=== PATIENT | female | born 1940 | race Caucasian/White ===

== ENCOUNTER 2016-04-11 20:19 | Emergency (ER) | payer MEDICARE, OTHER ==
[~2016-04-11] VITALS: Ht 165.1 cm; Wt 71.4 kg
[~2016-04-11 20:19] MED LIST: ALPR.25 PO; CELE200C PO; CLAR5TAB PO; CYMB60CA PO; ESTR0.5T PO; FELO2.5T PO; FLUT50SP EACH NARE; IBUP800T23 PO; ISOS30TA3 PO; LEVO.2 PO; LIDO1PAD52 TOPICAL; METO25TA6 PO; MIRA25TA PO; MULT1TAB84 PO; PROT40TA PO; SONA5CAP7 PO; TEGR200T PO; TRAM100T19 PO; ZOCO40TA PO
[2016-04-11 20:21] VITALS: BP 187/89; PULSE 77; RESP 15; TEMP 97.8; O2SAT 95
[2016-04-12] MEDS ORDERED: LEVO150T7 PO (10:37)
[2016-08-14] MEDS ORDERED: ISOS30TA15 PO (11:20)
[2016-08-14] MEDS ORDERED: ESTR1TAB PO (11:20)
== END 2016-04-11 21:04 | disposition left against medical advice (07) ==
LOC: NED 20:19
DX: T81.89XA Other complications of procedures, not elsewhere classified, initial encounter (principal)
CPT/HCPCS: 99281

== ENCOUNTER 2016-04-12 09:50 | Inpatient (IN) | payer MEDICARE, OTHER ==
[~2016-04-12] VITALS: Ht 165.1 cm; Wt 72.0 kg
[2016-04-12 09:55] VITALS: BP 138/92; PULSE 75; RESP 20; TEMP 98; O2SAT 95
[2016-04-12] MEDS ORDERED: LEVO150T7 PO (10:37)
--- NOTE | 2016-04-12 10:43 | PD ---
HPI Chief Complaint: Pain: Acute or Chronic Time Seen by Provider: 10:29 Travel History International Travel<30 days: No Contact w/Intl Traveler<30days: No Traveled to known affect area: No History of Present Illness HPI The patient is a 76-year-old female who presents emergency department for a wound amount of the right foot. The patient has a history of peripheral neuropathy, cause unknown, for over 20 years. The patient has a history of osteomyelitis to the right foot with previous amputation of the first and second digit. The patient is followed by her territory manager and medicaid eligibility specialist, Dr. Mckeon. The patient states she developed a wound on the bottom the right foot on Friday that has been draining. It is mildly painful, she does have some swelling of the right foot, and erythema over the dorsal aspect of the right foot. She was referred to the emergency department for further evaluation and testing to rule out osteomyelitis. The patient denies any history of diabetes, alcohol use, or heavy metal toxicity. The patient has been seen for her neuropathy, has had an appropriate workup per her report, and was diagnosed with idiopathic peripheral neuropathy. The patient's primary physician is Dr. Rosalia Beavers. 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 Dvce: Yes Musculoskeletal: Yes Neurologic: Yes Psychiatric: Yes Reproductive: No Respiratory: No Radiation Therapy: No Thyroid Disease: Yes (hx of cancer) Past Surgical History Abdominal Surgery: Yes (appendectomy) Appendectomy: Yes Cardiac Surgery: Yes (PACER) Genitourinary Surgery: Yes (bladder a and p repair x2) Gynecologic Surgery: Yes (tubaligation hysterectomy with a and p repair) Oral Surgery: Yes (rhinoplasty) Pacemaker: Yes Thoracic Surgery: Yes (thyroidectomy) Other Surgery: Yes (left lumpectomy) Social History Alcohol Use: No Tobacco Use: No Substance Use: No Allergies-Medications (Allergen,Severity, Reaction): Coded Allergies: Aspirin (Verified Allergy, Severe, gi upset, 04/12/16) Codeine (Verified Allergy, Severe, n/v, 04/12/16) Lortab (Verified Allergy, Severe, n/v, 04/12/16) Pentazocine (Verified Allergy, Severe, 04/12/16) unknown reaction Doxycycline (Verified Allergy, Unknown, 04/12/16) Levaquin (Verified Allergy, Unknown, 04/12/16) *MDRO Multi-Drug Resistant Organism (Verified Adverse Reaction, Unknown, ) MRSA (toe wound) - 10/10/15 Uncoded Allergies: toviaz (Allergy, Severe, angina pain, 07/20/10) NONE (Allergy, Unknown, 11/16/02) TALWIN (Allergy, Unknown, 07/20/10) hallucinates Reported Meds & Prescriptions Reported Meds & Active Scripts Active Reported Levothyroxine (Levothyroxine Sodium) 150 Mcg Tab 150 Mcg PO DAILY Estradiol 0.5 Mg Tab 0.5 Mg PO DAILY Sonata (Zaleplon) 5 Mg Cap 5 Mg PO HS PRN Tramadol ER 24 HR (Tramadol HCl) 100 Mg Vamsi 50 Mg PO DAILY Fluticasone Nasal [place] 50 Mcg/Act Naspr 50 Mcg EACH NARE BID 50 mcg/spray Myrbetriq (Mirabegron) 25 Mg Tab 25 Mg PO DAILY Felodipine ER (Felodipine) 2.5 Mg Vamsi 2.5 Mg PO HS Multivitamin Adults (Multiple Vitamins W/ Minerals) 1 Tab 1 Tab PO DAILY Lidocaine Patch 12 HR (Lidocaine) 5 % Patch 1 Patch TOPICAL DAILY PRN Remove patch after 12 hours Xanax (Alprazolam) 0.25 Mg Tab 0.25 Mg PO DAILY PRN Celebrex (Celecoxib) 200 Mg Cap 200 Mg PO DAILY PRN Cymbalta DR (Duloxetine HCl) 60 Mg Capdr 60 Mg PO HS Zocor (Simvastatin) 40 Mg Tab 40 Mg PO DAILY Tegretol (Carbamazepine) 200 Mg Tab 200 Mg PO BID Protonix (Pantoprazole Sodium) 40 Mg Tab 40 Mg PO DAILY Metoprolol Succinate ER 24 HR (Metoprolol Succinate) 25 Mg Tab 25 Mg PO DAILY Isosorbide Mononitrate ER (Isosorbide Mononitrate) 30 Mg Vamsi 30 Mg PO DAILY Clarinex (Desloratadine) 5 Mg Tab 5 Mg PO DAILY Review of Systems Except as stated in HPI: all other systems reviewed are Neg General / Constitutional: No: Fever Cardiovascular: No: Chest Pain or Discomfort Respiratory: No: Shortness of Breath Gastrointestinal: No: Nausea, Vomiting, Abdominal Pain Musculoskeletal: Positive: Pain Skin: Positive Other (as noted in the history of present illness) Neurologic: Positive: Paresthesia, Sensory Disturbance Physical Exam Narrative GENERAL: Awake, alert, nontoxic-appearing 76-year-old female who appears her stated age and is in no acute respiratory distress. SKIN: Warm and dry. HEAD: Atraumatic. Normocephalic. EYES: No injection or drainage. ENT: No nasal bleeding or discharge. Mucous membranes pink and moist. NECK: Trachea midline. No JVD. CARDIOVASCULAR: Regular rate and rhythm. No murmur appreciated. Pacemaker in place right chest wall. RESPIRATORY: No accessory muscle use. Clear to auscultation. Breath sounds equal bilaterally. GASTROINTESTINAL: Abdomen soft, non-tender, nondistended. Hepatic and splenic margins not palpable. MUSCULOSKELETAL: Inspection the right foot reveals previous amputation of the first and second digit. The patient does have an ulceration on the plantar surface of the right foot which is approximate 1.5 cm in diameter with drainage of serosanguineous drainage. Mild edema and erythema noted. Positive dorsalis pedal pulse. NEUROLOGICAL: Awake and alert. No obvious cranial nerve deficits. Motor grossly within normal limits. Normal speech. PSYCHIATRIC: Appropriate mood and affect; insight and judgment normal. Data Data Last Documented VS Vital Signs Date Time Temp Pulse Resp B/P Pulse Ox O2 Delivery O2 Flow Rate FiO2 04/12/16 09:55 98.0 75 20 138/92 95 Room Air Orders Complete Blood Count With Diff (04/12/16 10:34) Comprehensive Metabolic Panel (04/12/16 10:34) [place]gren Sedimentation Rate (04/12/16 10:34) C-Reactive Protein (Crp) (04/12/16 10:34) Lactic Acid (04/12/16 10:34) Blood Culture (04/12/16 10:34) Foot, Limited (2vws) (04/12/16 ) Add Patient To Providers List (04/12/16 ) ^ Dressings (04/12/16 10:45) Piperacil-Tazo 4.5 Gm Premix (Zosyn 4.5 (04/12/16 11:00) Vancomycin Inj (Vancomycin Inj) (04/12/16 11:00) Admit Order (Ed Use Only) (04/12/16 11:00) Wbc Spect Ceretec (04/12/16 ) Labs Laboratory Tests Test 04/12/16 10:42 White Blood Count 7.9 TH/MM3 Red Blood Count 4.04 MIL/MM3 Hemoglobin 14.0 GM/DL Hematocrit 39.8 % Mean Corpuscular Volume 98.3 FL Mean Corpuscular Hemoglobin 34.6 PG Mean Corpuscular Hemoglobin 35.2 % Concent Red Cell Distribution Width 13.6 % Platelet Count 173 TH/MM3 Mean Platelet Volume 8.5 FL Neutrophils (%) (Auto) 84.3 % Lymphocytes (%) (Auto) 9.1 % Monocytes (%) (Auto) 5.9 % Eosinophils (%) (Auto) 0.4 % Basophils (%) (Auto) 0.3 % Neutrophils # (Auto) 6.7 TH/MM3 Lymphocytes # (Auto) 0.7 TH/MM3 Monocytes # (Auto) 0.5 TH/MM3 Eosinophils # (Auto) 0.0 TH/MM3 Basophils # (Auto) 0.0 TH/MM3 CBC Comment DIFF FINAL Differential Comment Erythrocyte Sedimentation Rate 18 mm/hr Sodium Level 138 MEQ/L Potassium Level 3.8 MEQ/L Chloride Level 104 MEQ/L Carbon Dioxide Level 29.8 MEQ/L Anion Gap 4 MEQ/L Blood Urea Nitrogen 16 MG/DL Creatinine 0.66 MG/DL Estimat Glomerular Filtration 88 ML/MIN Rate Random Glucose 88 MG/DL Lactic Acid Level 0.8 mmol/L Calcium Level 8.3 MG/DL Total Bilirubin 0.4 MG/DL Aspartate Amino Transf 18 U/L (AST/SGOT) Alanine Aminotransferase 20 U/L (ALT/SGPT) Alkaline Phosphatase 118 U/L C-Reactive Protein 8.53 MG/DL Total Protein 7.2 GM/DL Albumin 3.2 GM/DL MDM Medical Decision Making Medical Screen Exam Complete: Yes Emergency Medical Condition: Yes Medical Record Reviewed: Yes Interpretation(s) Foot x-ray reveals findings suspicious for osteomyelitis Laboratory Tests Test 04/12/16 10:42 White Blood Count 7.9 TH/MM3 Red Blood Count 4.04 MIL/MM3 Hemoglobin 14.0 GM/DL Hematocrit 39.8 % Mean Corpuscular Volume 98.3 FL Mean Corpuscular Hemoglobin 34.6 PG Mean Corpuscular Hemoglobin 35.2 % Concent Red Cell Distribution Width 13.6 % Platelet Count 173 TH/MM3 Mean Platelet Volume 8.5 FL Neutrophils (%) (Auto) 84.3 % Lymphocytes (%) (Auto) 9.1 % Monocytes (%) (Auto) 5.9 % Eosinophils (%) (Auto) 0.4 % Basophils (%) (Auto) 0.3 % Neutrophils # (Auto) 6.7 TH/MM3 Lymphocytes # (Auto) 0.7 TH/MM3 Monocytes # (Auto) 0.5 TH/MM3 Eosinophils # (Auto) 0.0 TH/MM3 Basophils # (Auto) 0.0 TH/MM3 CBC Comment DIFF FINAL Differential Comment Erythrocyte Sedimentation Rate 18 mm/hr Sodium Level 138 MEQ/L Potassium Level 3.8 MEQ/L Chloride Level 104 MEQ/L Carbon Dioxide Level 29.8 MEQ/L Anion Gap 4 MEQ/L Blood Urea Nitrogen 16 MG/DL Creatinine 0.66 MG/DL Estimat Glomerular Filtration 88 ML/MIN Rate Random Glucose 88 MG/DL Lactic Acid Level 0.8 mmol/L Calcium Level 8.3 MG/DL Total Bilirubin 0.4 MG/DL Aspartate Amino Transf 18 U/L (AST/SGOT) Alanine Aminotransferase 20 U/L (ALT/SGPT) Alkaline Phosphatase 118 U/L C-Reactive Protein 8.53 MG/DL Total Protein 7.2 GM/DL Albumin 3.2 GM/DL Differential Diagnosis Differential diagnosis osteomyelitis, peripheral neuropathy, foot ulcer, abscess , cellulitis. Narrative Course IV was established, labs are drawn and sent, and the patient was placed on cardiac telemetry monitoring and continuous pulse oximetry monitoring. Patient was evaluated bedside, discussed the patient with Dr. Mckeon in the emergency department, requested admission to the medical service with IV antibiotics and nuclear medicine WBC scan to evaluate for possible osteomyelitis , patient cannot have an MRI secondary to pacemaker. X-ray of the right foot is suspicious for osteomyelitis. Sedimentation rate is normal, however, CRP is elevated. The patient was administered Zosyn and vancomycin. The patient's primary physician is Dr. Francis Beavers, therefore, [facility] were paged for admission. Physician Communication Physician Communication The patient's primary physician is Dr. Francis Beavers, therefore, [facility] were paged for admission. I discussed the patient Dr. Abraham who agrees with admission. Diagnosis Primary Impression: Osteomyelitis of foot, right, acute Admitting Information Admitting Physician Requests: Admit Condition: Stable Desean Yeh MD Apr 12, 2016 10:43
--- NOTE | 2016-04-12 10:54 | PD.POD.CON ---
Patient Intake Chief Complaint Ulceration plantar aspect of the right foot Consult Requested by Dr. Hernandez emergency department Reason for Consult Evaluation and treatment of ulceration right foot Primary Care Physician Nydia Beavers History of Present Illness Patient is a 76-year-old patient well-known to myself. Patient had osteomyelitis of the hallux and underwent an amputation with good healing. She is idiopathic primary progressive neuropathy. She started having swelling of the right foot approximately 3-4 weeks ago. She underwent radiographs show fractures of the second and third metatarsal heads. She was scheduled for an outpatient [facility] labeled white blood cell scan but had difficulties arranging it. She called the office yesterday and since she has an open wound on the plantar aspect of the right foot. She was sent to the ED to be admitted and undergo the bone scan. If the bone is infected I will take her to the OR on Friday for excision. Coded Allergies: Aspirin (Verified Allergy, Severe, gi upset, 04/12/16) Codeine (Verified Allergy, Severe, n/v, 04/12/16) Lortab (Verified Allergy, Severe, n/v, 04/12/16) Pentazocine (Verified Allergy, Severe, 04/12/16) unknown reaction Doxycycline (Verified Allergy, Unknown, 04/12/16) Levaquin (Verified Allergy, Unknown, 04/12/16) *MDRO Multi-Drug Resistant Organism (Verified Adverse Reaction, Unknown, ) MRSA (toe wound) - 10/10/15 Uncoded Allergies: toviaz (Allergy, Severe, angina pain, 07/20/10) NONE (Allergy, Unknown, 11/16/02) GERONIMO (Allergy, Unknown, 07/20/10) hallucinates Preferred Language to Discuss: Burmese Barriers to Learning: None Teaching Method: Discussion Vital Signs Date Time Temp Pulse Resp B/P Pulse Ox O2 Delivery O2 Flow Rate FiO2 04/12/16 09:55 98.0 75 20 138/92 95 Room Air Pain scale used: 0-10 numeric scale Pain score: 0 Past, Family & Social History Past Medical History HEENT: REPORTS HX OF: Cataracts, DENIES HX OF: Glaucoma, Recurrent ear infections, Recurrent sinusitis, Other HEENT history Endocrine: REPORTS HX OF: Hypothyroidism, DENIES HX OF: Diabetes mellitus, Graves disease, Hyperthyroidism, Other endocrine history Respiratory: DENIES HX OF: Allergies/hay fever, Asthma, COPD, CPAP use, Sleep apnea, Other respiratory history Cardiovascular: REPORTS HX OF: Cardiac arrhythmias, Deep venous thrombosis, Heart valve disease, Hypertension, DENIES HX OF: Abdominal aortic aneurysm, Angina, Atrial fibrillation, Coronary artery disease, Heart failure, Hyperlipidemia, Myocardial infarction, Peripheral vascular dz, Other CV history Gastrointestinal: REPORTS HX OF: GERD, DENIES HX OF: Colitis, Irritable bowel syndrome, Liver disease, Pancreatitis, Peptic ulcer disease, Other GI history Genitourinary: DENIES HX OF: Chlamydia, Gonorrhea, Hemodialysis, Herpes genitalis, Human papillomavirus, Kidney disease, Kidney failure, Kidney stones, Past UTI, Peritoneal dialysis, Urinary incontinence, Other history Gynecologic: DENIES HX OF: Abnormal pap smear, Chronic pelvic pain, Endometriosis, PID, Polycystic ovarian synd, Recurrent vaginal infxn, Other plastering contractor history Musculoskeletal: REPORTS HX OF: Osteoarthritis, DENIES HX OF: Fibromyalgia, Fractures, Gout, Osteoporosis, Rheumatoid arthritis, Other musculoskeletal hx Cancer/Hematology: REPORTS HX OF: Thyroid cancer, DENIES HX OF: Anemia, Bladder Cancer, Blood cancer, Brain cancer, Breast cancer, Colorectal cancer, Endocrine cancer, Eye cancer, GI cancer, cancer, Kidney cancer, Leukemia, Liver cancer, Lung cancer, Lymphoma, Musculoskeletal cancer, Neurologic cancer, Oral cancer, Skin cancer, Stomach cancer, Other cancer/hematology Cancer - female: DENIES HX OF: Cervical cancer, Ovarian cancer, Uterine cancer Infectious disease: DENIES HX OF: AIDS, Chickenpox, Hepatitis, HIV, Measles, MRSA, Mumps, Polio, Positive PPD, Rheumatic fever, Rubella, Syphilis, Tuberculosis, Vanc-resistant enterococc, Other inf disease history Integumentary: REPORTS HX OF: Psoriasis, DENIES HX OF: Acne, Eczema, Other integumentary hx Neurologic: REPORTS HX OF: Peripheral neuropathy, Restless leg syndrome, Stroke , DENIES HX OF: ADHD, Autism, Dementia, Developmental delay, Headaches, Multiple sclerosis, Parkinson disease, Seizures, Transient ischemic attack, Other neurologic history Psychiatric: REPORTS HX OF: Depression, DENIES HX OF: Anorexia nervosa, Anxiety, Bipolar disorder, Bulimia, Schizophrenia, Other psychiatric history Genetic/metabolic: DENIES HX OF: Cystic fibrosis, Down syndrome, Other genetic history, Other metabolic history Events: DENIES HX OF: Anaphylaxis, Gunshot wound, Motor vehicle accident, Other events Disabilities: DENIES HX OF: Hearing deficit, Vision deficit, Hemiparesis, Paraplegia, Quadriplegia, Other disabilities Past Surgical History HEENT: REPORTS HX OF: Cataract extraction, Dental surgery, Other throat surgery , DENIES HX OF: Laryngectomy, Tonsillectomy, Other head surgery, Other eye surgery, Other ear surgery, Other nasal surgery Endocrine: REPORTS HX OF: Thyroid surgery, DENIES HX OF: Parathyroidectomy, Other endocrine surgery Respiratory: DENIES HX OF: Bronchoscopy, Lobectomy, Other chest surgery Cardiovascular: REPORTS HX OF: Angiogram, Pacemaker, DENIES HX OF: Angioplasty , CABG surgery, Carotid endarterectomy, Coronary stent, Heart transplant, Valve replacement, Other cardiac surgery Gastrointestinal: REPORTS HX OF: Appendectomy, DENIES HX OF: Cholecystectomy, Colectomy, subtotal, Colectomy, total, Gastric bypass, Hernia repair, Splenectomy, Other GI surgery Genitourinary: REPORTS HX OF: Bladder surgery, DENIES HX OF: Kidney stone extraction, Nephrectomy, Other surgery Gynecologic: REPORTS HX OF: Hysterectomy, Tubal ligation, DENIES HX OF: Cervical conization/LEEP, delivery, Oophorectomy, Other plastering contractor surgery Musculoskeletal: REPORTS HX OF: Joint replacement (right knee), Other musculoskeletal srg (amputation of the right hallux) Integumentary: DENIES HX OF: Skin cancer removal, Other integumentary surg Neurologic: DENIES HX OF: Craniotomy, Spinal surgery, Other neurologic surgery Breast: REPORTS HX OF: Breast biopsy, Lumpectomy, DENIES HX OF: Mastectomy, bilateral, Mastectomy, left, Mastectomy, right, Other breast surgery Family Medical History Patient History: Atrial fibrillation G8 MOTHER, Onset:50's - 60 Cardiac arrest G8 MOTHER, Onset:60 years & older Cerebrovascular accident G8 MOTHER, Onset:60 years & older G8 SISTER, Onset:60 years & older G8 SISTER, Onset:50's - 60 ( at 60) Depression G8 MOTHER, Onset:40's - 50 19 DAUGHTER, Onset:Adolescence 19 DAUGHTER, Onset:30's - 40 G8 SISTER, Onset:50's - 60 G8 SISTER, Onset:Adolescence Hypertension G8 MOTHER, Onset:50's - 60 G8 SISTER, Onset:60 years & older G8 SISTER, Onset:40's - 50 Thyroid disease G8 MOTHER, Onset:50's - 60 G8 SISTER, Onset:50's - 60 Substance Use Substance use: Denies use Review of Systems Constitutional: COMPLAINS OF: Good general health Musculoskeletal: COMPLAINS OF: Deformaties Neurological: COMPLAINS OF: Numbness/tingling, Changes in sensation Exam-Podiatry Constitutional General appearance: comfortable Nutritional status: normal Orientation: alert and oriented x3 Dermatological Exam Skin Temp - Right: Within Normal Limits Skin Texture - Right: Within Normal Limits Skin Elasticity - Right: Within Normal Limits Skin Tugor - Right: Within Normal Limits Hair Growth - Right: Within Normal Limits Pigmentation - Right: Within Normal Limits Skin Temp - Left: Within Normal Limits Skin Texture - Left: Within Normal Limits Skin Elasticity - Left: Within Normal Limits Skin Tugor - Left: Within Normal Limits Hair Growth - Left: Within Normal Limits Pigmentation - Left: Within Normal Limits Ulcers: Location/Measurements Right foot is swollen with slight erythema. She has an ulceration under the second metatarsal head which measures approximate 4 mm x 3 mm. There is no purulent drainage seen. Vascular/Lymphatic Exam R Dorsails Pedis: Palpable L Dorsails Pedis: Palpable R Posterior Tibial: Palpable L Posterior Tibial: Palpable Neurologic Exam Present on right: Tingling, Paraesthesia Present on left: Tingling, Paraesthesia Sensation: Light touch: Absence Pinprick: Absence Proprioception: Absence Vibratory: Absence Monofilament exam: 1st metatarsal head: absent 5th metatarsal head: absent Musculoskeletal Exam Details Hallux amputation right foot. Swollen right forefoot with fractures and destruction of second and third metatarsal heads noted on her x-rays Muscle Strength Dorsiflexion (Right): Normal Plantarflexion (Right): Normal Inversion (Right): Normal Eversion (Right): Normal Digital (Right): Normal Dorsiflexion (Left): Normal Plantarflexion (Left): Normal Inversion (Left): Normal Eversion (Left): Normal Digital (Left): Normal Foot Range of Motion Dorsiflexion (Right): Normal Plantarflexion (Right): Normal Inversion (Right): Normal Eversion (Right): Normal Digital (Right): Normal Dorsiflexion (Left): Normal Plantarflexion (Left): Normal Inversion (Left): Normal Eversion (Left): Normal Digital (Left): Normal Extremities Edema: Right lower extremity: 2+, nonpitting, foot Wound Assessment Wound Information - Wound One Wound Location: Right great toe- plantar Wound Two Wound Location: Right great toe amp site Assessment/Plan Problem List: (1) Pressure ulcer of right foot, stage 3 Status: Acute (2) Peripheral neuropathy Status: Chronic (3) Osteomyelitis of toe of right foot Status: Acute (4) Fracture of metatarsal Status: Acute Additional Plans & Procedures PLAN: [facility]. If test is positive we'll take her to the OR on Friday for excision of infected bone. Protective dressing for now. We'll continue to follow. Problem Qualifiers (1) Peripheral neuropathy: Qualified Code: G60.9 - Idiopathic peripheral neuropathy (2) Fracture of metatarsal: Qualified Code: S92.321G - Closed displaced fracture of second metatarsal bone of right foot with delayed healing, subsequent encounter Francis Mckeon DPM Apr 12, 2016 10:54
[2016-04-12 10:59] LABS: AUTOMATED NEUTROPHIL # 6.7 TH/MM3 (1.8-7.7); BASOPHIL % 0.3 % (0.0-2.0); EOSINOPHIL % 0.4 % (0.0-4.0); HEMATOCRIT 39.8 % (35.0-46.0); HEMO FLAGS DIFF FINAL; LYMPH % 9.1 % (9.0-44.0); LYMPHOCYTE # 0.7 TH/MM3 (1.0-4.8); MEAN CELL VOLUME 98.3 FL (80.0-100.0); MEAN CORPUSCULAR HEMOGLOBIN 34.6 PG (27.0-34.0); MEAN CORPUSCULAR HGB CONC 35.2 % (32.0-36.0); MONO % 5.9 % (0.0-8.0); NEUT % 84.3 % (16.0-70.0); PLATELET COUNT 173 TH/MM3 (150-450); RED BLOOD COUNT 4.04 MIL/MM3 (4.00-5.30); RED CELL DISTRIBUTION WIDTH 13.6 % (11.6-17.2); WHITE BLOOD COUNT 7.9 TH/MM3 (4.0-11.0)
[2016-04-12] MEDS ORDERED: VANCOMYCIN INJ 1,000 MG in SODIUM CHLOR 0.9% 250 ML INJ 250 ML IV ONE (11:00)
[2016-04-12] MEDS ORDERED: PIPERACIL-TAZO 4.5 GM PREMIX 100 ML IV ONE (11:00)
[2016-04-12] MEDS ORDERED: ONDANSETRON HCL 4 MG/2 ML VIAL IVP PRN (11:15)
[2016-04-12] MEDS ORDERED: SODIUM CHLORIDE 0.9% FLUSH 5 ML FLUSH FLUSH PRN (11:15)
[2016-04-12] MEDS ORDERED: NALOXONE HCL 0.4 MG/ML AMP IV PRN (11:15)
[2016-04-12] MEDS ORDERED: LIDOCAINE HCL 5% PATCH T-DERMAL PRN (11:15)
[2016-04-12] MEDS ORDERED: CELECOXIB 200 MG CAP PO PRN (11:15)
[2016-04-12 11:27] LABS: ALT (GPT) 20 U/L (10-53); ANION GAP 4 MEQ/L (5-15); AST (GOT) 18 U/L (15-37); BICARBONATE 29.8 MEQ/L (21.0-32.0); BLOOD UREA NITROGEN 16 MG/DL (7-18); CHLORIDE 104 MEQ/L (98-107); GLOMERULAR FILTRATION RATE 88 ML/MIN (>89); POTASSIUM 3.8 MEQ/L (3.5-5.1); SODIUM (NA) 138 MEQ/L (136-145)
[2016-04-12 11:30] LABS: ALKALINE PHOSPHATASE 118 U/L (45-117); TOTAL BILIRUBIN ADULT 0.4 MG/DL (0.2-1.0)
--- NOTE | 2016-04-12 11:54 | RADRPT ---
EXAM DATE/TIME: 04/12/2016 11:06 [place] COMPARISON: No previous studies available for comparison. INDICATIONS : Plantar wound with inflammation and pain. MEDICAL HISTORY : Osteoarthritis. Great toe bone infection. SURGICAL HISTORY : Great toe amputation. ENCOUNTER: Initial ACUITY: 2 weeks PAIN SCORE: 4/10 LOCATION: 3rd metatarsal/plantar wound. FINDINGS: The patient is status-post amputation of the 1st phalanx. There is periosteal reaction involving the distal 2nd metatarsal and proximal phalanx of the 2nd toe. Periosteal reaction is seen about the 3r d metatarsal, what looks like a fracture. There is ulceration present throughout the site. There is no soft tissue evident. CONCLUSION: Findings suspicious for osteomyelitis. Bryn Vo MD FACR on April 12, 2016 at 11:18 Board Certified Radiologist. This report was verified electronically.
[2016-04-12 12:00] VITALS: BP 138/68; PULSE 71; RESP 20; O2SAT 97
[2016-04-12] MEDS ORDERED: ZOLPIDEM TARTRATE 5 MG TAB PO PRN (12:00)
[2016-04-12] MEDS: HEPARIN SODIUM - SQ 10,000 UNITS/ML VIAL SQ SCH (13:41)
[2016-04-12] MEDS: SODIUM CHLOR 0.45% 1000 ML INJ 1,000 ML IV SCH (15:14)
--- NOTE | 2016-04-12 16:33 | HHI.HP ---
HPI Service [facility] Primary Care Physician Nydia Beavers Admission Diagnosis pressure foot ulcer right foot rule out osteomyelitis, neuropathy Diagnoses: Chief Complaint: FOOT ULCER Travel History International Travel<30 Days: No Contact w/Intl Traveler <30 Da: No Traveled to Known Affected Are: No History of Present Illness Patient is a 76-year-old female with PMHx of idiopathic neuropathy receives immunoglobulin therapy from Dr. Cardona, diabetes, hypertension, hyperlipidemia, osteomyelitis of the hallux with amputation. She follows up regularly with Dr. Mckeon. Patient presented to the emergency room for evaluation of wound to the right foot. According to the patient, she has noted the wound has been draining, it is mildly painful, she does have decreased sensation. She's noted that the second and third toe are more swollen and she has erythema over the dorsal aspect of the right foot and up anterior leg, sometimes this is more when she is walking or legs are dangling. Symptoms have been ongoing for a couple of weeks. She denies any fever or chills. She contacted Dr. Mckeon and was scheduled to have a Ceretec scan but had difficulties arranging it. He will order x-rays that showed fractures of the second and third metatarsal heads. She called him yesterday and because of the open wound she was directed to the emergency room for admission to have bone scan. Dr. Mckeon has evaluated patient, if the bone is infected he plans to take her to the OR for excision. Patient has just come back from bone scan, she is resting comfortably. Pain is minimal. She is hemodynamically stable. X-ray of the foot was done showing suspicious for osteomyelitis. CRP is elevated. Patient is admitted for further evaluation and treatment. Review of Systems Constitutional: DENIES: Diaphoretic episodes, Fatigue, Fever, Weight gain, Weight loss, Chills, Dizziness, Change in appetite, Night Sweats Endocrine: DENIES: Abnorml menstrual pattern, Heat/cold intolerance, Polydipsia , Polyuria, Polyphagia Eyes: DENIES: Blurred vision, Diplopia, Eye inflammation, Eye pain, Vision loss , Photosensitivity, Double Vision Ears, nose, mouth, throat: DENIES: Tinnitus, Hearing loss, Vertigo, Nasal discharge, Oral lesions, Throat pain, Hoarseness, Ear Pain, Running Nose, Epistaxis, Sinus Pain, Toothache, Odynophagia Respiratory: DENIES: Apneas, Cough, Snoring, Wheezing, Hemoptysis, Sputum production, Shortness of breath Cardiovascular: DENIES: Chest pain, Palpitations, Syncope, Dyspnea on Exertion , PND, Lower Extremity Edema, Orthopnea, Claudication Gastrointestinal: DENIES: Abdominal pain, Black stools, Bloody stools, Constipation, Diarrhea, Nausea, Vomiting, Difficulty Swallowing, Anorexia Genitourinary: DENIES: Abnormal vaginal bleeding, Dysmenorrhea, Dyspareunia, Sexual dysfunction, Urinary frequency, Urinary incontinence, Urgency, Hematuria , Dysuria, Nocturia, Vaginal discharge Musculoskeletal: COMPLAINS OF: Joint pain, DENIES: Muscle aches, Stiffness, Joint Swelling, Back pain, Neck pain Integumentary: DENIES: Abnormal pigmentation, Pruritus, Rash, Nail changes, Breast masses, Breast skin changes, Nipple discharge Hematologic/lymphatic: DENIES: Bruising, Lymphadenopathy Immunologic/allergic: DENIES: Eczema, Urticaria Neurologic: DENIES: Abnormal gait, Headache, Localized weakness, Paresthesias, Seizures, Speech Problems, Tremor, Poor Balance Psychiatric: DENIES: Anxiety, Confusion, Mood changes, Depression, Hallucinations, Agitation, Suicidal Ideation, Homicidal Ideation, Delusions Other Swelling of second and third toe right foot, wound to the plantar aspect of right foot with scant drainage. Erythema to right foot and leg Past Family Social History Past Medical History Osteomyelitis of hallux, status post amputation Chronic inflammatory demyelinating polyneuropathy Prediabetes GERD Hiatal hernia Hypertension Thyroid cancer Hyperlipidemia Coronary artery disease, had cardiac catheter that showed mild disease, treated medically Bradycardia, require pacemaker CVA many years ago, no deficits Anxiety Arthritis Cataract DVT Past Surgical History Right total knee arthroplasty Breast augmentation Appendectomy Bladder repair Hysterectomy Tubal ligation Thyroidectomy Rhinoplasty Left lumpectomy benign tumor Pacemaker insertion for bradycardia Cardiac catheterization S/P Amputation of the right hallux at the [facility] 01/05 Reported Medications Reported Meds & Active Scripts Active Reported Levothyroxine (Levothyroxine Sodium) 150 Mcg Tab 150 Mcg PO DAILY Estradiol 0.5 Mg Tab 0.5 Mg PO DAILY Sonata (Zaleplon) 5 Mg Cap 5 Mg PO HS PRN Tramadol ER 24 HR (Tramadol HCl) 100 Mg Vamsi 50 Mg PO DAILY Fluticasone Nasal [place] 50 Mcg/Act Naspr 50 Mcg EACH NARE BID 50 mcg/spray Myrbetriq (Mirabegron) 25 Mg Tab 25 Mg PO DAILY Felodipine ER (Felodipine) 2.5 Mg Vamsi 2.5 Mg PO HS Multivitamin Adults (Multiple Vitamins W/ Minerals) 1 Tab 1 Tab PO DAILY Lidocaine Patch 12 HR (Lidocaine) 5 % Patch 1 Patch TOPICAL DAILY PRN Remove patch after 12 hours Xanax (Alprazolam) 0.25 Mg Tab 0.25 Mg PO DAILY PRN Celebrex (Celecoxib) 200 Mg Cap 200 Mg PO DAILY PRN Cymbalta DR (Duloxetine HCl) 60 Mg Capdr 60 Mg PO HS Zocor (Simvastatin) 40 Mg Tab 40 Mg PO DAILY Tegretol (Carbamazepine) 200 Mg Tab 200 Mg PO BID Protonix (Pantoprazole Sodium) 40 Mg Tab 40 Mg PO DAILY Metoprolol Succinate ER 24 HR (Metoprolol Succinate) 25 Mg Tab 25 Mg PO DAILY Isosorbide Mononitrate ER (Isosorbide Mononitrate) 30 Mg Vamsi 30 Mg PO DAILY Clarinex (Desloratadine) 5 Mg Tab 5 Mg PO DAILY Allergies: Coded Allergies: Aspirin (Verified Allergy, Severe, gi upset, 04/12/16) Codeine (Verified Allergy, Severe, n/v, 04/12/16) Lortab (Verified Allergy, Severe, n/v, 04/12/16) Pentazocine (Verified Allergy, Severe, 04/12/16) unknown reaction Doxycycline (Verified Allergy, Unknown, 04/12/16) Levaquin (Verified Allergy, Unknown, 04/12/16) *MDRO Multi-Drug Resistant Organism (Verified Adverse Reaction, Unknown, ) MRSA (toe wound) - 10/10/15 Uncoded Allergies: toviaz (Allergy, Severe, angina pain, 07/20/10) NONE (Allergy, Unknown, 11/16/02) TALWIN (Allergy, Unknown, 07/20/10) hallucinates Active Ordered Medications Inpatient Medications Acetaminophen (Tylenol) 650 mg Q4H PRN PO TEMP > 100.4; Start 04/12/16 at 11:15 Alprazolam (Xanax) 0.25 mg DAILY PRN PO ANXIETY; Start 04/12/16 at 11:15 Amlodipine Besylate (Norvasc) 2.5 mg HS PO ; Start 04/12/16 at 21:00 Carbamazepine (TEGretol) 200 mg BID PO ; Start 04/12/16 at 21:00 Celecoxib (CeleBREX) 200 mg DAILY PRN PO PAIN; Start 04/12/16 at 11:15 Duloxetine HCl (Cymbalta Dr) 60 mg HS PO ; Start 04/12/16 at 21:00 Estradiol (Estradiol) 0.5 mg DAILY PO ; Start 04/13/16 at 09:00 Fluticasone Propionate (Flonase Daryl Spr) 1 spray BID EACH NARE ; Start 04/12/16 at 21:00 Heparin Sodium (Porcine) (Heparin Inj) 5,000 units Q12H SQ Last administered on 04/12/16 13:41; Start 04/12/16 at 12:00 Isosorbide Mononitrate (Imdur) 30 mg DAILY PO ; Start 04/13/16 at 09:00 IV Flush (NS Flush) 2 ml BID FLUSH ; Start 04/12/16 at 21:00 Levothyroxine Sodium (Synthroid) 150 mcg DAILY@0600 PO ; Start 04/13/16 at 06:00 Lidocaine HCl (Lidoderm 5% Patch.12 Hr) 1 patch DAILY PRN T-DERMAL PAIN; Start 04/12/16 at 11:15 Loratadine (Claritin) 10 mg DAILY PO ; Start 04/13/16 at 09:00 Metoprolol Succinate (Toprol Xl) 25 mg DAILY PO ; Start 04/13/16 at 09:00 Multivitamins/ Minerals Therapeutic (Theragran M Tab) 1 tab DAILY PO ; Start 04/13/16 at 09:00 Naloxone HCl (Narcan Inj) 0.4 mg UNSCH PRN IV SEE LABEL COMMENTS; Start at 11:15 Ondansetron HCl (Zofran Inj) 4 mg Q6H PRN IVP NAUSEA OR VOMITING; Start at 11:15 Pantoprazole Sodium (Protonix) 40 mg DAILY PO ; Start 04/13/16 at 09:00 Patient Own Medication PT OWN MED: MYRBET... DAILY PO ; Start 04/13/16 at 09:00; Status Future Hold Piperacillin Sod/ Tazobactam Sod 100 ml @ 200 mls/hr ONCE ONCE IV Last administered on 04/12/16 11:11; Start 04/12/16 at 11:00; Stop 04/12/16 at 11:29; Status DC Pravastatin Sodium (Pravachol) 80 mg DAILY PO ; Start 04/13/16 at 09:00 Sodium Chloride (1/2 NS 1000 ml Inj) 1,000 ml @ 75 mls/hr [id number] IV Last administered on 04/12/16 15:14; Start 04/12/16 at 11:01 Tramadol HCl (Ultram) 50 mg DAILY PO ; Start 04/13/16 at 09:00 Vancomycin HCl 1000 mg/Sodium Chloride 250 ml @ 125 mls/hr ONCE ONCE IV Last administered on 04/12/16 12:03; Start 04/12/16 at 11:00; Stop 04/12/16 at 12:59; Status DC Zolpidem Tartrate (Ambien) 5 mg HS PRN PO INSOMNIA; Start 04/12/16 at 12:00 Family History Positive for history of thyroid disease, hypertension, depression, CVA, cardiac arrest, A. fib Social History Patient is a , lives alone. She has 2 grown daughters who are supportive and live nearby. No alcohol, no tobacco, no substance abuse. Occasionally uses a cane for ambulation. Physical Exam Vital Signs Vital Signs Date Time Temp Pulse Resp B/P Pulse Ox O2 Delivery O2 Flow Rate FiO2 04/12/16 12:00 71 20 138/68 97 Room Air 04/12/16 09:55 98.0 75 20 138/92 95 Room Air Physical Exam GENERAL: This is a well-nourished, well-developed patient, in no apparent distress. SKIN: No rashes, ecchymoses or lesions. Cool and dry. HEAD: Atraumatic. Normocephalic. No temporal or scalp tenderness. EYES: Pupils equal round and reactive. Extraocular motions intact. No scleral icterus. No injection or drainage. ENT: Nose without bleeding, purulent drainage or septal hematoma. Throat without erythema, tonsillar hypertrophy or exudate. Uvula midline. Airway patent. NECK: Trachea midline. No JVD or lymphadenopathy. Supple, nontender, no meningeal signs. CARDIOVASCULAR: Regular rate and rhythm without murmurs, gallops, or rubs. RESPIRATORY: Clear to auscultation. Breath sounds equal bilaterally. No wheezes , rales, or rhonchi. GASTROINTESTINAL: Abdomen soft, non-tender, nondistended. No hepato-splenomegaly , or palpable masses. No guarding. MUSCULOSKELETAL: Right foot is swollen with slight erythema. There is also erythema at the anterior right leg. She has an ulceration under the second metatarsal head which measures approximate 4 mm x 3 mm. There is no purulent drainage seen. Status post right hallux amputation, site appears well-healed. Second and third toe are swollen. No other joint abnormalities. NEUROLOGICAL: Awake and alert. Cranial nerves II through XII intact. Motor and sensory grossly within normal limits. Five out of 5 muscle strength in all muscle groups. Normal speech. Decrease sensation to both feet. Laboratory Laboratory Tests Test 04/12/16 10:42 White Blood Count 7.9 Red Blood Count 4.04 Hemoglobin 14.0 Hematocrit 39.8 Mean Corpuscular Volume 98.3 Mean Corpuscular Hemoglobin 34.6 Mean Corpuscular Hemoglobin 35.2 Concent Red Cell Distribution Width 13.6 Platelet Count 173 Mean Platelet Volume 8.5 Neutrophils (%) (Auto) 84.3 Lymphocytes (%) (Auto) 9.1 Monocytes (%) (Auto) 5.9 Eosinophils (%) (Auto) 0.4 Basophils (%) (Auto) 0.3 Neutrophils # (Auto) 6.7 Lymphocytes # (Auto) 0.7 Monocytes # (Auto) 0.5 Eosinophils # (Auto) 0.0 Basophils # (Auto) 0.0 CBC Comment DIFF FINAL Differential Comment Erythrocyte Sedimentation Rate 18 Sodium Level 138 Potassium Level 3.8 Chloride Level 104 Carbon Dioxide Level 29.8 Anion Gap 4 Blood Urea Nitrogen 16 Creatinine 0.66 Estimat Glomerular Filtration 88 Rate Random Glucose 88 Lactic Acid Level 0.8 Calcium Level 8.3 Total Bilirubin 0.4 Aspartate Amino Transf 18 (AST/SGOT) Alanine Aminotransferase 20 (ALT/SGPT) Alkaline Phosphatase 118 C-Reactive Protein 8.53 Total Protein 7.2 Albumin 3.2 Date/Time Procedure Status Source Growth 04/12/16 10:50 Aerobic Blood Culture Received Blood Peripheral Pending 04/12/16 10:50 Anaerobic Blood Culture Received Blood Peripheral Pending Result Diagram: 04/12/16 1042 04/12/16 1042 Imaging Last Impressions Foot X-Ray 04/12/16 0000 Signed Impressions: Service Date/Time: Tuesday, April 12, 2016 11:06 - CONCLUSION: Findings suspicious for osteomyelitis. Bryn Vo MD FACR Assessment and Plan Problem List: (1) Osteomyelitis of foot, right, acute (2) Hypertension (3) Hyperlipidemia (4) Hypothyroid (5) Diet-controlled diabetes mellitus (6) Peripheral neuropathy (7) CAD (coronary artery disease) Assessment and Plan Admit Dr. Abraham 76-year-old female with previous osteomyelitis of right hallux, status post amputation. Returns to emergency room with increased swelling and erythema right foot, has open wound to the plantar aspect of the right foot. Admitted for recurrent foot ulcer, possible osteomyelitis -Dr. Mckeon has evaluated patient, input appreciated. -Bone scan has been ordering completed. Per Dr. Mckeon, if the bone is infected he will take her to the OR and Friday for excision -We'll follow up on results of scan Pain management -Cultures have been obtained -Will be started on empiric antibiotic Neuropathy -continue Cymbalta and Tegretol Diet -controlled diabetes -Accu-Cheks before meals and at bedtime with low-dose insulin therapy Hypertension, stable -Resume home medications CAD stable Continue home medications Heparin for DVT prophylaxis Plan of care discussed with pt, RN, and attending. Further management of the patient will be dependent on the hospital course. This patient was seen by myself and Dr. Abraham. This H/P is written on his behalf. Physician Certification 2 Midnight Certification Type: Admission for Inpatient Services Order for Inpatient Services The services are ordered in accordance with Medicare regulations or non- Medicare payer requirements, as applicable. In the case of services not specified as inpatient-only, they are appropriately provided as inpatient services in accordance with the 2-midnight benchmark. Estimated LOS (days): 2 2 days is the estimated time the patient will need to remain in the hospital, assuming treatment plan goals are met and no additional complications. Post-Hospital Plan: Home Health Problem Qualifiers (1) Hypertension: Qualified Code: I10 - Essential hypertension (2) Hyperlipidemia: Qualified Code: E78.5 - Hyperlipidemia, unspecified hyperlipidemia type (3) Hypothyroid: Qualified Code: E03.9 - Hypothyroidism, unspecified type (4) Peripheral neuropathy: Qualified Code: G60.9 - Idiopathic peripheral neuropathy (5) CAD (coronary artery disease): Qualified Code: I25.10 - Coronary artery disease involving [place] coronary artery of [place] heart without angina pectoris Yaneli Solano Apr 12, 2016 16:33
[2016-04-12 16:35] VITALS: BP 153/72; PULSE 86; RESP 17; TEMP 98.2; O2SAT 98
[2016-04-12] MEDS ORDERED: Vancomycin Consult Pharmacy 1 EA OTHER SCH (17:00)
[2016-04-12] MEDS ORDERED: DEXTROSE 50% IN WATER 50 ML VIAL(D50) IV PUSH PRN (17:00)
[2016-04-12] MEDS ORDERED: GLUCAGON 1 MG/ML VIAL OTHER PRN (17:00)
[2016-04-12 20:45] VITALS: BP 165/81; PULSE 75; RESP 17; TEMP 97.6; O2SAT 96
[2016-04-12] MEDS: INSULIN ASPART SUPPLEMENTAL SCALE SQ SCH (21:00)
[2016-04-12] MEDS: FLUTICASONE PROPIONATE 50 MCG/ACT 16 GM NASAL SPRAY EACH NARE SCH (21:00)
[2016-04-12] MEDS: DULoxetine HCl DR 60 MG CAP PO SCH (21:51)
[2016-04-12] MEDS: carBAMazepine 200 MG TAB PO SCH (21:51)
[2016-04-12] MEDS: amLODIPine BESYLATE 5 MG TAB PO SCH (21:52)
[2016-04-12] MEDS: SODIUM CHLORIDE 0.9% FLUSH 5 ML FLUSH FLUSH SCH (21:52)
[2016-04-12] MEDS ORDERED: VANCOMYCIN 1,000 MG/NS 250 ML IV ONE ×2 (23:00)
[2016-04-13 00:45] VITALS: BP 150/80; PULSE 69; RESP 18; TEMP 98.1; O2SAT 97
[2016-04-13] MEDS: HEPARIN SODIUM - SQ 10,000 UNITS/ML VIAL SQ SCH ×3 (01:37→23:26)
[2016-04-13] MEDS: PIPERACIL-TAZO 3.375 GM PREMIX 50 ML IV SCH ×5 (01:37→22:46)
[2016-04-13] MEDS: ACETAMINOPHEN 325 MG TAB PO PRN ×2 (02:41→14:04)
[2016-04-13 05:15] VITALS: BP 140/76; PULSE 83; RESP 17; TEMP 98; O2SAT 94
[2016-04-13] MEDS: INSULIN ASPART SUPPLEMENTAL SCALE SQ SCH ×2 (06:48→11:00)
[2016-04-13 08:05] LABS: BICARBONATE 26.3 MEQ/L (21.0-32.0)
[2016-04-13 08:15] LABS: BASOPHIL % 0.3 % (0.0-2.0); EOSINOPHIL % 0.2 % (0.0-4.0); HEMATOCRIT 40.4 % (35.0-46.0); HEMO FLAGS DIFF FINAL; LYMPH % 18.9 % (9.0-44.0); MEAN CELL VOLUME 99.7 FL (80.0-100.0); MEAN CORPUSCULAR HEMOGLOBIN 34.7 PG (27.0-34.0); MEAN CORPUSCULAR HGB CONC 34.8 % (32.0-36.0); MONO % 6.2 % (0.0-8.0); NEUT % 74.4 % (16.0-70.0); PLATELET COUNT 158 TH/MM3 (150-450); RED BLOOD COUNT 4.05 MIL/MM3 (4.00-5.30); RED CELL DISTRIBUTION WIDTH 13.7 % (11.6-17.2); WHITE BLOOD COUNT 5.3 TH/MM3 (4.0-11.0)
[2016-04-13 08:48] LABS: POTASSIUM 3.3 MEQ/L (3.5-5.1)
[2016-04-13] MEDS ORDERED: NON-FORMULARY DRUG (Mirabegron (Myrbetriq) 25 MG) PO SCH (09:00)
[2016-04-13] MEDS ORDERED: PT OWN - MYRBETRIQ 25 MG PO SCH (09:00)
[2016-04-13] MEDS: FLUTICASONE PROPIONATE 50 MCG/ACT 16 GM NASAL SPRAY EACH NARE SCH ×2 (09:00→20:25)
[2016-04-13 09:59] VITALS: BP 134/74; PULSE 78; RESP 20; TEMP 97.7; O2SAT 94
[2016-04-13] MEDS: LORATADINE 10 MG TAB PO SCH (10:20)
[2016-04-13] MEDS: LEVOTHYROXINE SODIUM 150 MCG TAB PO SCH (10:20)
[2016-04-13] MEDS: PRAVASTATIN SOD 80 MG TAB PO SCH (10:21)
[2016-04-13] MEDS: ESTRADIOL 1 MG TAB PO SCH (10:21)
[2016-04-13] MEDS: METOPROLOL SUCCINATE 25 MG EXTENDED RELEASE TAB PO SCH (10:21)
[2016-04-13] MEDS: ISOSORBIDE MONONITRATE 30 MG TAB PO SCH (10:21)
[2016-04-13] MEDS: carBAMazepine 200 MG TAB PO SCH ×2 (10:21→20:25)
[2016-04-13] MEDS: PANTOPRAZOLE SOD 40 MG DELAYED RELEASE TAB PO SCH (10:22)
[2016-04-13] MEDS: traMADol HCL 50 MG TAB PO SCH (10:22)
[2016-04-13] MEDS: MULTIVITAMINS/MINERALS THERAPEUTIC TAB PO SCH (10:22)
[2016-04-13] MEDS: SODIUM CHLORIDE 0.9% FLUSH 5 ML FLUSH FLUSH SCH ×2 (10:23→20:25)
--- NOTE | 2016-04-13 11:17 | RADRPT ---
EXAM DATE/TIME: 04/12/2016 12:59 [facility] COMPARISON: FOOT RIGHT LIMITED (2VWS), April 12, 2016, 11:06. INDICATIONS : Osteomyelitis of right foot. DOSE: 21 mCi Tc99m Ceretec labeled white blood cells IV SPECT IMAGIN hrs, 20 hrs IMAGNG: SPECT/CT imaging with fusion was performed. RADIATION DOSE: 5.21 CTDIvol (mGy) MEDICAL HISTORY : Hypertension. Diabetes mellitus type 2. Gastroesophageal reflux disease. Thyroid cancer. SURGICAL HISTORY : Thyroidectomy. Tubal ligation. Hysterectomy. Pacemaker, lumpectomy, bladder surgery and amputation o f the right hallux. ENCOUNTER: Subsequent ACUITY: 1 month PAIN SCALE: 0/10 LOCATION: Right foot. TECHNIQUE: Following the in vitro labeling of autologous white cells and reinjection, whole body scan was perfor med at the specified times. SPECT imaging was performed at the specified time in sagittal, axial and coronal planes. Attenuation correction was performed with the computed tomography and both the atten uation correction and non-attenuation corrected data sets were reviewed. FINDINGS: Normal distribution of radiotracer. There is abnormal radiotracer uptake at the second metatarsal pha langeal joint. There is also some slight uptake in the neck of the second metatarsal and base of the proximal phalanx of the second digit. Amputation of the great toe. Soft tissue swelling. CONCLUSION: 1. Suspected osteomyelitis along the head of the second metatarsal, 2nd metatarsal phalangeal joint a nd base of the proximal phalanx of the second digit. Francis Ortiz MD on April 13, 2016 at 11:09 Board Certified Radiologist. This report was verified electronically.
--- NOTE | 2016-04-13 11:59 | PD.POD ---
Subjective Podiatric Problems Idiopathic peripheral neuropathy Osteomyelitis of the second toe and second metatarsal and possible third metatarsal right foot. Ulceration subsecond metatarsal head right foot Pain scale used: 0-10 numeric scale Pain score: 0 Remarks Patient is a 76-year-old female who I have followed in the wound Center for osteomyelitis of the hallux. She is status post resection and amputation of the right hallux with good healing. She started having swelling of the second and third metatarsal phalangeal joint. Radiographs were obtained which showed a fractured second and third metatarsal head. She developed an ulcer under the second metatarsal head. Patient called the office and I had her admitted for evaluation for osteomyelitis. Ceretec labeled white blood cell scan shows osteomyelitis of the second metatarsal phalangeal joint. There is periosteal reaction at the third metatarsal. Past Med/Surg/Social History Past Medical History HEENT: REPORTS HX OF: Cataracts, DENIES HX OF: Glaucoma, Recurrent ear infections, Recurrent sinusitis, Other HEENT history Endocrine: REPORTS HX OF: Hypothyroidism, DENIES HX OF: Diabetes mellitus, Graves disease, Hyperthyroidism, Other endocrine history Respiratory: DENIES HX OF: Allergies/hay fever, Asthma, COPD, CPAP use, Sleep apnea, Other respiratory history Cardiovascular: REPORTS HX OF: Cardiac arrhythmias, Deep venous thrombosis, Heart valve disease, Hypertension, DENIES HX OF: Abdominal aortic aneurysm, Angina, Atrial fibrillation, Coronary artery disease, Heart failure, Hyperlipidemia, Myocardial infarction, Peripheral vascular dz, Other CV history Gastrointestinal: REPORTS HX OF: GERD, DENIES HX OF: Colitis, Irritable bowel syndrome, Liver disease, Pancreatitis, Peptic ulcer disease, Other GI history Genitourinary: DENIES HX OF: Chlamydia, Gonorrhea, Hemodialysis, Herpes genitalis, Human papillomavirus, Kidney disease, Kidney failure, Kidney stones, Past UTI, Peritoneal dialysis, Urinary incontinence, Other history Gynecologic: DENIES HX OF: Abnormal pap smear, Chronic pelvic pain, Endometriosis, PID, Polycystic ovarian synd, Recurrent vaginal infxn, Other eviscerator history Musculoskeletal: REPORTS HX OF: Osteoarthritis, DENIES HX OF: Fibromyalgia, Fractures, Gout, Osteoporosis, Rheumatoid arthritis, Other musculoskeletal hx Cancer/Hematology: REPORTS HX OF: Thyroid cancer, DENIES HX OF: Anemia, Bladder Cancer, Blood cancer, Brain cancer, Breast cancer, Colorectal cancer, Endocrine cancer, Eye cancer, GI cancer, cancer, Kidney cancer, Leukemia, Liver cancer, Lung cancer, Lymphoma, Musculoskeletal cancer, Neurologic cancer, Oral cancer, Skin cancer, Stomach cancer, Other cancer/hematology Cancer - female: DENIES HX OF: Cervical cancer, Ovarian cancer, Uterine cancer Infectious disease: DENIES HX OF: AIDS, Chickenpox, Hepatitis, HIV, Measles, MRSA, Mumps, Polio, Positive PPD, Rheumatic fever, Rubella, Syphilis, Tuberculosis, Vanc-resistant enterococc, Other inf disease history Integumentary: REPORTS HX OF: Psoriasis, DENIES HX OF: Acne, Eczema, Other integumentary hx Neurologic: REPORTS HX OF: Peripheral neuropathy, Restless leg syndrome, Stroke , DENIES HX OF: ADHD, Autism, Dementia, Developmental delay, Headaches, Multiple sclerosis, Parkinson disease, Seizures, Transient ischemic attack, Other neurologic history Psychiatric: REPORTS HX OF: Depression, DENIES HX OF: Anorexia nervosa, Anxiety, Bipolar disorder, Bulimia, Schizophrenia, Other psychiatric history Genetic/metabolic: DENIES HX OF: Cystic fibrosis, Down syndrome, Other genetic history, Other metabolic history Events: DENIES HX OF: Anaphylaxis, Gunshot wound, Motor vehicle accident, Other events Disabilities: DENIES HX OF: Hearing deficit, Vision deficit, Hemiparesis, Paraplegia, Quadriplegia, Other disabilities Past Surgical History HEENT: REPORTS HX OF: Cataract extraction, Dental surgery, Other throat surgery , DENIES HX OF: Laryngectomy, Tonsillectomy, Other head surgery, Other eye surgery, Other ear surgery, Other nasal surgery Endocrine: REPORTS HX OF: Thyroid surgery, DENIES HX OF: Parathyroidectomy, Other endocrine surgery Respiratory: DENIES HX OF: Bronchoscopy, Lobectomy, Other chest surgery Cardiovascular: REPORTS HX OF: Angiogram, Pacemaker, DENIES HX OF: Angioplasty , CABG surgery, Carotid endarterectomy, Coronary stent, Heart transplant, Valve replacement, Other cardiac surgery Gastrointestinal: REPORTS HX OF: Appendectomy, DENIES HX OF: Cholecystectomy, Colectomy, subtotal, Colectomy, total, Gastric bypass, Hernia repair, Splenectomy, Other GI surgery Genitourinary: REPORTS HX OF: Bladder surgery, DENIES HX OF: Kidney stone extraction, Nephrectomy, Other surgery Gynecologic: REPORTS HX OF: Hysterectomy, Tubal ligation, DENIES HX OF: Cervical conization/LEEP, delivery, Oophorectomy, Other eviscerator surgery Musculoskeletal: REPORTS HX OF: Joint replacement (right knee), Other musculoskeletal srg (amputation of the right hallux) Integumentary: DENIES HX OF: Skin cancer removal, Other integumentary surg Neurologic: DENIES HX OF: Craniotomy, Spinal surgery, Other neurologic surgery Breast: REPORTS HX OF: Breast biopsy, Lumpectomy, DENIES HX OF: Mastectomy, bilateral, Mastectomy, left, Mastectomy, right, Other breast surgery Social History Smoking Status: Former Smoker Review of Systems Notes No changes in her 14 point review of systems exam since yesterday Neurological: COMPLAINS OF: Numbness/tingling, Changes in sensation Objective Vital Signs Vital Signs Date Time Temp Pulse Resp B/P Pulse Ox O2 Delivery O2 Flow Rate FiO2 04/13/16 11:27 18 04/13/16 09:59 97.7 78 20 134/74 94 04/13/16 05:15 98.0 83 17 140/76 94 04/13/16 00:45 98.1 69 18 150/80 97 04/12/16 20:45 97.6 75 17 165/81 96 04/12/16 16:35 98.2 86 17 153/72 98 Room Air 04/12/16 12:00 71 20 138/68 97 Room Air Coded Allergies: Aspirin (Verified Allergy, Severe, gi upset, 04/12/16) Codeine (Verified Allergy, Severe, n/v, 04/12/16) Lortab (Verified Allergy, Severe, n/v, 04/12/16) Pentazocine (Verified Allergy, Severe, 04/12/16) unknown reaction Doxycycline (Verified Allergy, Unknown, 04/12/16) Levaquin (Verified Allergy, Unknown, 04/12/16) *MDRO Multi-Drug Resistant Organism (Verified Adverse Reaction, Unknown, ) MRSA (toe wound) - 10/10/15 Uncoded Allergies: toviaz (Allergy, Severe, angina pain, 07/20/10) NONE (Allergy, Unknown, 11/16/02) TALWIN (Allergy, Unknown, 07/20/10) hallucinates Medications and IVs Current Medications Piperacillin Sod/ Tazobactam Sod 100 ml @ 200 mls/hr ONCE ONCE IV Last administered on 04/12/16t 11:11; Start 04/12/16 at 11:00; Stop 04/12/16 at 11:29; Status DC Vancomycin HCl 1000 mg/Sodium Chloride 250 ml @ 125 mls/hr ONCE ONCE IV Last administered on 04/12/16 12:03; Start 04/12/16 at 11:00; Stop 04/12/16 at 12:59; Status DC Sodium Chloride (03/11 NS 1000 ml Inj) 1,000 ml @ 75 mls/hr [id number] IV Last administered on 04/12/16 15:14; Start 04/12/16 at 11:01 IV Flush (NS Flush) 2 ml UNSCH PRN FLUSH FLUSH AFTER USING IV ACCESS; Start 04/12/16 at 11:15 IV Flush (NS Flush) 2 ml BID FLUSH Last administered on 04/13/16 10:23; Start 04/12/16 at 21:00 Acetaminophen (Tylenol) 650 mg Q4H PRN PO TEMP > 100.4 Last administered on 04/13 02:41; Start 04/12/16 at 11:15 Ondansetron HCl (Zofran Inj) 4 mg Q6H PRN IVP NAUSEA OR VOMITING; Start at 11:15 Heparin Sodium (Porcine) (Heparin Inj) 5,000 units Q12H SQ Last administered on 04/13/16 01:37; Start 04/12/16 at 12:00 Naloxone HCl (Narcan Inj) 0.4 mg UNSCH PRN IV SEE LABEL COMMENTS; Start at 11:15 Alprazolam (Xanax) 0.25 mg DAILY PRN PO ANXIETY; Start 04/12/16 at 11:15 Carbamazepine (TEGretol) 200 mg BID PO Last administered on 04/13/16 10:21; Start 04/12/16 at 21:00 Celecoxib (CeleBREX) 200 mg DAILY PRN PO PAIN; Start 04/12/16 at 11:15 Duloxetine HCl (Cymbalta Dr) 60 mg HS PO Last administered on 04/12/16 21:51; Start 04/12/16 at 21:00 Estradiol (Estradiol) 0.5 mg DAILY PO Last administered on 04/13/16 10:21; Start 04/13/16 at 09:00 Fluticasone Propionate (Flonase Daryl Spr) 1 spray BID EACH NARE Last administered on 04/13/16 09:00; Start 04/12/16 at 21:00 Isosorbide Mononitrate (Imdur) 30 mg DAILY PO Last administered on 04/13/16 10: 21; Start 04/13/16 at 09:00 Levothyroxine Sodium (Synthroid) 150 mcg DAILY@0600 PO Last administered on 04/13 10:20; Start 04/13/16 at 06:00 Lidocaine HCl (Lidoderm 5% Patch.12 Hr) 1 patch DAILY PRN T-DERMAL PAIN; Start 04/12/16 at 11:15 Metoprolol Succinate (Toprol Xl) 25 mg DAILY PO Last administered on 04/13/16 10:21; Start 04/13/16 at 09:00 Multivitamins/ Minerals Therapeutic (Theragran M Tab) 1 tab DAILY PO Last administered on 04/13/16 10:22; Start 04/13/16 at 09:00 Pantoprazole Sodium (Protonix) 40 mg DAILY PO Last administered on 04/13/16 10: 22; Start 04/13/16 at 09:00 Loratadine (Claritin) 10 mg DAILY PO Last administered on 04/13/16 10:20; Start 04/13/16 at 09:00 Amlodipine Besylate (Norvasc) 2.5 mg HS PO Last administered on 04/12/16 21:52 ; Start 04/12/16 at 21:00 Non-Formulary Medication 25 mg DAILY PO ; Start 04/13/16 at 09:00; Status UNV Pravastatin Sodium (Pravachol) 80 mg DAILY PO Last administered on 04/13/16 10: 21; Start 04/13/16 at 09:00 Tramadol HCl (Ultram) 50 mg DAILY PO Last administered on 04/13/16 10:22; Start 04/13/16 at 09:00 Zolpidem Tartrate (Ambien) 5 mg HS PRN PO INSOMNIA; Start 04/12/16 at 12:00 Patient Own Medication PT OWN MED: MYRBET... DAILY PO ; Start 04/13/16 at 09:00; Status Hold Piperacillin Sod/ Tazobactam Sod 50 ml @ 100 mls/hr Q6H IV Last administered on 04/13/16 05:00; Start 04/12/16 at 23:00 Pharmacy Profile Note (Vancomycin Consult Pharmacy) 0 ml @ 0 mls/hr UNSCH OTHER ; Start 04/12/16 at 17:00 Dextrose (D50w (Vial) Inj) 25 ml UNSCH PRN IV PUSH HYPOGLYCEMIA-SEE COMMENTS; Start 04/12/16 at 17:00 Glucagon (Glucagon Inj) 1 mg UNSCH PRN OTHER HYPOGLYCEMIA-SEE COMMENTS; Start 04/12/16 at 17:00 Insulin Aspart 1 1 ACHS SLIDING SCALE SQ ; Start 04/12/16 at 21:00 Vancomycin HCl 1000 mg/Sodium Chloride 250 ml @ 250 mls/hr ONCE ONCE IV Last administered on 04/12/16t 01:00; Start 04/12/16 at 23:00; Stop 04/12/16 at 23:59; Status DC Vancomycin HCl/ Sodium Chloride (Vancomycin Inj/ NS 500 ml Inj) 515 ml @ 257.5 mls/ hr Q24H IV ; Start 04/13/16 at 14:00 Miscellaneous Information SPECIFIC LAB TO BE RAJ... ONCE ONCE XX ; Start at 13:45; Stop 04/15/16 at 13:46 Other Results Laboratory Tests Test 04/12/16 04/13/16 10:42 06:47 White Blood Count 7.9 TH/MM3 5.3 TH/MM3 Red Blood Count 4.04 MIL/MM3 4.05 MIL/MM3 Hemoglobin 14.0 GM/DL 14.1 GM/DL Hematocrit 39.8 % 40.4 % Mean Corpuscular Volume 98.3 FL 99.7 FL Mean Corpuscular Hemoglobin 34.6 PG 34.7 PG Mean Corpuscular Hemoglobin 35.2 % 34.8 % Concent Red Cell Distribution Width 13.6 % 13.7 % Platelet Count 173 TH/MM3 158 TH/MM3 Mean Platelet Volume 8.5 FL 8.7 FL Neutrophils (%) (Auto) 84.3 % 74.4 % Lymphocytes (%) (Auto) 9.1 % 18.9 % Monocytes (%) (Auto) 5.9 % 6.2 % Eosinophils (%) (Auto) 0.4 % 0.2 % Basophils (%) (Auto) 0.3 % 0.3 % Neutrophils # (Auto) 6.7 TH/MM3 4.0 TH/MM3 Lymphocytes # (Auto) 0.7 TH/MM3 1.0 TH/MM3 Monocytes # (Auto) 0.5 TH/MM3 0.3 TH/MM3 Eosinophils # (Auto) 0.0 TH/MM3 0.0 TH/MM3 Basophils # (Auto) 0.0 TH/MM3 0.0 TH/MM3 CBC Comment DIFF FINAL DIFF FINAL Differential Comment Erythrocyte Sedimentation Rate 18 mm/hr Laboratory Tests Test 04/12/16 04/13/16 10:42 06:47 Sodium Level 138 MEQ/L 141 MEQ/L Potassium Level 3.8 MEQ/L 3.3 MEQ/L Chloride Level 104 MEQ/L 106 MEQ/L Carbon Dioxide Level 29.8 MEQ/L 26.3 MEQ/L Anion Gap 4 MEQ/L 9 MEQ/L Blood Urea Nitrogen 16 MG/DL 11 MG/DL Creatinine 0.66 MG/DL 0.69 MG/DL Estimat Glomerular Filtration 88 ML/MIN 83 ML/MIN Rate Random Glucose 88 MG/DL 95 MG/DL Lactic Acid Level 0.8 mmol/L Calcium Level 8.3 MG/DL 8.6 MG/DL Total Bilirubin 0.4 MG/DL Aspartate Amino Transf 18 U/L (AST/SGOT) Alanine Aminotransferase 20 U/L (ALT/SGPT) Alkaline Phosphatase 118 U/L C-Reactive Protein 8.53 MG/DL Total Protein 7.2 GM/DL Albumin 3.2 GM/DL Microbiology Date/Time Procedure Status Source Growth 04/12/16 10:20 Aerobic Blood Culture - Preliminary Resulted Blood Peripheral NO GROWTH IN 1 DAY 04/12/16 10:20 Anaerobic Blood Culture - Preliminary Resulted Blood Peripheral NO GROWTH IN 1 DAY 04/12/16 10:41 Gram Stain Received Wound Toe Pending 04/12/16 10:41 Wound Culture Received Wound Toe Pending 04/12/16 10:50 Aerobic Blood Culture - Preliminary Resulted Blood Peripheral NO GROWTH IN 1 DAY 04/12/16 10:50 Anaerobic Blood Culture - Preliminary Resulted Blood Peripheral NO GROWTH IN 1 DAY Exam-Podiatry Constitutional General appearance: comfortable Nutritional status: overweight Orientation: alert and oriented x3 Dermatological Exam Skin Temp - Right: Within Normal Limits Skin Texture - Right: Within Normal Limits Skin Elasticity - Right: Within Normal Limits Skin Tugor - Right: Within Normal Limits Hair Growth - Right: Within Normal Limits Pigmentation - Right: Within Normal Limits Skin Temp - Left: Within Normal Limits Skin Texture - Left: Within Normal Limits Skin Elasticity - Left: Within Normal Limits Skin Tugor - Left: Within Normal Limits Hair Growth - Left: Within Normal Limits Pigmentation - Left: Within Normal Limits Ulcers: Location/Measurements Small ulceration 4 mm x 3 mm plantar aspect of the second metatarsal head of the right foot. Vascular/Lymphatic Exam R Dorsails Pedis: Palpable L Dorsails Pedis: Palpable R Posterior Tibial: Palpable L Posterior Tibial: Palpable Neurologic Exam Present on right: Tingling, Paraesthesia Present on left: Tingling, Paraesthesia Sensation: Light touch: Absence Pinprick: Absence Proprioception: Absence Vibratory: Absence Monofilament exam: 1st metatarsal head: absent 5th metatarsal head: absent Great toe: absent Musculoskeletal Exam Details Hallux amputation right foot with good healing. Swelling of the second and third MPJs of the right foot. Swelling of the second toe of the right foot Muscle Strength Dorsiflexion (Right): Normal Plantarflexion (Right): Normal Inversion (Right): Normal Eversion (Right): Normal Digital (Right): Normal Dorsiflexion (Left): Normal Plantarflexion (Left): Normal Inversion (Left): Normal Eversion (Left): Normal Digital (Left): Normal Foot Range of Motion Dorsiflexion (Right): Normal Plantarflexion (Right): Normal Inversion (Right): Normal Eversion (Right): Normal Digital (Right): Normal Dorsiflexion (Left): Normal Plantarflexion (Left): Normal Inversion (Left): Normal Eversion (Left): Normal Digital (Left): Normal Assessment & Plan Diagnosis: (1) Pressure ulcer, stage II, skin breakdown Status: Acute (2) Pain in toe of right foot Status: Acute (3) Subluxation of metatarsophalangeal joint of toe Status: Acute (4) Peripheral neuropathy Status: Chronic (5) Osteomyelitis of toe of right foot Status: Acute (6) Osteomyelitis of foot, right, acute Status: Acute A/P PLAN: Skilled studies results of the bone scan with the patient. Discussed risk of letting the infection go. We have scheduled her for surgery for tomorrow morning. Explained planned procedures which include amputation of the second toe and resection of the third and second metatarsal heads of the right foot. She understands the risk of the procedure. She wishes to proceed with the planned surgery. Consent orders are written. We'll follow during the course of this admission. Preop orders written Problem Qualifiers (1) Subluxation of metatarsophalangeal joint of toe: Qualified Code: S93.149D - Subluxation of metatarsophalangeal joint of toe, subsequent encounter (2) Peripheral neuropathy: Qualified Code: G60.9 - Idiopathic peripheral neuropathy Francis Mckeon DPM Apr 13, 2016 11:58
[2016-04-13 12:32] VITALS: BP 135/61; PULSE 73; RESP 20; TEMP 99.4; O2SAT 96
--- NOTE | 2016-04-13 12:37 | HHI.PR ---
Subjective Subjective Remarks No chest pain Shortness of breath Appetite fair No headache Anxiety mild Right foot elevated Review of Systems Constitutional Constitutional: Weakness (generalized. 10 point ROS done positives noted in record, other systems negative or unremarkable) Musculoskeletal MS: Weakness, Discomfort/Pain Integumentary Skin: Wounds Skin Remarks Right great toe, amputation in December 2015.. Mild erythema right lower leg Vitals/Results Intake & Output 04/12/16 04/12/16 04/13/16 15:00 23:00 07:00 Intake Total 400 ml 700 ml Balance 400 ml 700 ml Intake Oral 400 ml 700 ml # Voids 2 6 # Bowel Movements 0 0 Vital Signs Vital Signs Date Time Temp Pulse Resp B/P Pulse Ox O2 Delivery O2 Flow Rate FiO2 04/13/16 11:27 18 04/13/16 09:59 97.7 78 20 134/74 94 04/13/16 05:15 98.0 83 17 140/76 94 04/13/16 00:45 98.1 69 18 150/80 97 04/12/16 20:45 97.6 75 17 165/81 96 04/12/16 16:35 98.2 86 17 153/72 98 Room Air CBC/BMP: 04/13/16 0647 04/13/16 0647 Lab Results Laboratory Tests Test 04/13/16 06:47 White Blood Count 5.3 TH/MM3 Red Blood Count 4.05 MIL/MM3 Hemoglobin 14.1 GM/DL Hematocrit 40.4 % Mean Corpuscular Volume 99.7 FL Mean Corpuscular Hemoglobin 34.7 PG Mean Corpuscular Hemoglobin 34.8 % Concent Red Cell Distribution Width 13.7 % Platelet Count 158 TH/MM3 Mean Platelet Volume 8.7 FL Neutrophils (%) (Auto) 74.4 % Lymphocytes (%) (Auto) 18.9 % Monocytes (%) (Auto) 6.2 % Eosinophils (%) (Auto) 0.2 % Basophils (%) (Auto) 0.3 % Neutrophils # (Auto) 4.0 TH/MM3 Lymphocytes # (Auto) 1.0 TH/MM3 Monocytes # (Auto) 0.3 TH/MM3 Eosinophils # (Auto) 0.0 TH/MM3 Basophils # (Auto) 0.0 TH/MM3 CBC Comment DIFF FINAL Differential Comment Sodium Level 141 MEQ/L Potassium Level 3.3 MEQ/L Chloride Level 106 MEQ/L Carbon Dioxide Level 26.3 MEQ/L Anion Gap 9 MEQ/L Blood Urea Nitrogen 11 MG/DL Creatinine 0.69 MG/DL Estimat Glomerular Filtration 83 ML/MIN Rate Random Glucose 95 MG/DL Calcium Level 8.6 MG/DL Imaging Remarks Last Impressions Tumor Localization 04/12/16 0000 Signed Impressions: Service Date/Time: Tuesday, April 12, 2016 12:59 - CONCLUSION: 1. Suspected osteomyelitis along the head of the second metatarsal, 2nd metatarsal phalangeal joint and base of the proximal phalanx of the second digit. Francis Ortiz MD Foot X-Ray 04/12/16 Signed Impressions: Service Date/Time: Tuesday, April 12, 2016 11:06 - CONCLUSION: Findings suspicious for osteomyelitis. Bryn Vo MD FACR Current Medications Active Medications Amlodipine Besylate (Norvasc) 2.5 mg HS PO Last administered on 04/12/16 21:52; Admin Dose 2.5 MG; Start 04/12/16 at 21:00 Carbamazepine (TEGretol) 200 mg BID PO Last administered on 04/13/16 10:21; Admin Dose 200 MG; Start 04/12/16 at 21:00 Dextrose (D50w (Vial) Inj) 25 ml UNSCH PRN IV PUSH; Start 04/12/16 at 17:00 Duloxetine HCl (Cymbalta Dr) 60 mg HS PO Last administered on 04/12/16 21:51; Admin Dose 60 MG; Start 04/12/16 at 21:00 Estradiol (Estradiol) 0.5 mg DAILY PO Last administered on 04/13/16 10:21; Admin Dose 0.5 MG; Start 04/13/16 at 09:00 Fluticasone Propionate (Flonase Daryl Spr) 1 spray BID EACH NARE Last administered on 04/13/16 09:00; Admin Dose 1 SPRAY; Start 04/12/16 at 21:00 Glucagon 1 mg 1 mg UNSCH PRN OTHER; Start 04/12/16 at 17:00 Isosorbide Mononitrate (Imdur) 30 mg DAILY PO Last administered on 04/13/16 10: 21; Admin Dose 30 MG; Start 04/13/16 at 09:00 IV Flush (NS Flush) 2 ml BID FLUSH Last administered on 04/13/16 10:23; Admin Dose 2 ML; Start 04/12/16 at 21:00 Levothyroxine Sodium (Synthroid) 150 mcg DAILY@0600 PO Last administered on 10:20; Admin Dose 150 MCG; Start 04/13/16 at 06:00 Loratadine (Claritin) 10 mg DAILY PO Last administered on 04/13/16 10:20; Admin Dose 10 MG; Start 04/13/16 at 09:00 Metoprolol Succinate (Toprol Xl) 25 mg DAILY PO Last administered on 04/13/16 10 :21; Admin Dose 25 MG; Start 04/13/16 at 09:00 Miscellaneous Information SPECIFIC LAB TO BE RAJ... ONCE ONCE XX; Start at 13:45; Stop 04/15/16 at 13:46 Multivitamins/ Minerals Therapeutic (Theragran M Tab) 1 tab DAILY PO Last administered on 04/13/16 10:22; Admin Dose 1 TAB; Start 04/13/16 at 09:00 Non-Formulary Medication 25 mg DAILY PO; Start 04/13/16 at 09:00; Status UNV Pantoprazole Sodium (Protonix) 40 mg DAILY PO Last administered on 04/13/16 10: 22; Admin Dose 40 MG; Start 04/13/16 at 09:00 Patient Own Medication PT OWN MED: MYRBET... DAILY PO; Start 04/13/16 at 09:00; Status Hold Pharmacy Profile Note (Vancomycin Consult Pharmacy) 0 ml @ 0 mls/hr UNSCH OTHER ; Start 04/12/16 at 17:00 Piperacillin Sod/ Tazobactam Sod 50 ml @ 100 mls/hr Q6H IV Last administered on 04/13/16 11:54; Admin Dose 100 MLS/HR; Start 04/12/16 at 23:00 Pravastatin Sodium (Pravachol) 80 mg DAILY PO Last administered on 04/13/16 10: 21; Admin Dose 80 MG; Start 04/13/16 at 09:00 Tramadol HCl (Ultram) 50 mg DAILY PO Last administered on 04/13/16 10:22; Admin Dose 50 MG; Start 04/13/16 at 09:00 Vancomycin HCl 1000 mg/Sodium Chloride 250 ml @ 250 mls/hr ONCE ONCE IV Last administered on 04/12/16t 01:00; Admin Dose 250 MLS/HR; Start 04/12/16 at 23:00; Stop 04/12/16 at 23:59; Status DC Vancomycin HCl/ Sodium Chloride (Vancomycin Inj/ NS 500 ml Inj) 515 ml @ 257.5 mls/ hr Q24H IV; Start 04/13/16 at 14:00 Physical Exam General General Appearance: Well Developed, Well Nourished, Anxious Appearance Remarks Mild anxiety over current condition Eyes Eye Exam: Pupils Equal, Pupils Reactive, Sclera White Ears & Nose Ears & Nose Exam: Nasal Mucosa [place] Throat Throat Exam: Oral Mucosa [place] & Moist Neck Neck Exam: Neck Supple Pulmonary Resp Exam: Clear Bilaterally, Breath Sounds Equal, No Distress Cardiology CV Exam: Regular Gastrointestinal/Abdomen GI Exam: Soft, Non-Tender, Bowel Sounds Present Genitourinary Exam: Clear Urine Musculoskeletal MS Exam: Unable to Ambulate, Infections MS Remarks Ousted for osteomyelitis second toe, third toe. Recent great toe removed right foot Dressing clean dry and intact Extremeties Extremities Exam: No Edema Neurologic Neuro Exam: Alert, Awake, Oriented, Speech Clear, Moving All Extremities Assessment/Plan Assessment/Plan Assessment and Plan Problem List: (1) Osteomyelitis of foot, right, acute (2) Hypertension (3) Hyperlipidemia (4) Hypothyroid (5) Diet-controlled diabetes mellitus (6) Peripheral neuropathy (7) CAD (coronary artery disease) hypokalemia 8. Hypokalemia Assessment and Plan 76-year-old female with previous osteomyelitis of right hallux, status post amputation. Returns to emergency room with increased swelling and erythema right foot, has open wound to the plantar aspect of the right foot. Admitted for recurrent foot ulcer, osteomyelitis -Dr. Mckeon has evaluated patient, input appreciated. -Bone scan has been ordering completed. Positive for osteomyelitis see note below -We'll follow up on results of scan Pain management -Cultures have been obtained -Will be started on empiric antibiotic Neuropathy -continue Cymbalta and Tegretol Diet -controlled diabetes -Accu-Cheks before meals and at bedtime with low-dose insulin therapy Hypertension, stable -Resume home medications CAD stable Continue home medications Heparin for DVT prophylaxis Plan of care discussed with pt, RN, and attending. Further management of the patient will be dependent on the hospital course. Skilled studies results of the bone scan with the patient. Discussed risk of letting the infection go. We have scheduled her for surgery for tomorrow morning. Explained planned procedures which include amputation of the second toe and resection of the third and second metatarsal heads of the right foot. She understands the risk of the procedure. She wishes to proceed with the planned surgery. Consent orders are written. . This is per mammalogy teacher Plan surgery in the a.m.. Patient is aware and has been educated on plan of care Supplemental K given. Will recheck lab in the morning This patient was seen by myself and Dr. Abraham. This H/P is written on his behalf. Apr 12, 2016 16:33 Discussed Condition with: Patient KaitlinAvril bustillo Apr 13, 2016 12:37
[2016-04-13] MEDS ORDERED: POTASSIUM CL 40 MEQ/30 ML LIQ UDC PO ONE (12:45)
[2016-04-13] MEDS: SODIUM CHLOR 0.45% 1000 ML INJ 1,000 ML IV SCH (12:50)
--- NOTE | 2016-04-13 13:28 | RADRPT ---
EXAM DATE/TIME: 04/13/2016 13:13 [facility] COMPARISON: No previous studies available for comparison. INDICATIONS : Pre-operative for surgery to second digit of right foot. Evaluate for pneumothorax, pneumonia or comm unicable disease. MEDICAL HISTORY : None. SURGICAL HISTORY : Pacemaker. ENCOUNTER: Initial ACUITY: 1 day PAIN SCORE: 0/10 LOCATION: Bilateral chest FINDINGS: PA and lateral views of the chest demonstrate the lungs to be symmetrically aerated without evidence of mass, infiltrate or effusion. Heart normal in size. Right-sided pacemaker with intact leads. Left -sided portacatheter with tip in the right atrium. The cardiomediastinal contours are unremarkable. Osseous structures are intact. CONCLUSION: No acute disease. Francis Ortiz MD on April 13, 2016 at 13:27 Board Certified Radiologist. This report was verified electronically.
[2016-04-13] MEDS: VANCOMYCIN 1,500 MG/NS 500 ML IV SCH ×2 (14:04)
[2016-04-13] MEDS ORDERED: METOPROLOL TARTRATE 25 MG TAB PO PRN (15:00)
[2016-04-13] MEDS: SODIUM CHLORID 0.9% 500 ML IV SCH (15:00)
[2016-04-13] MEDS: LACTATED RINGER'S 1000 ML IV SCH (15:00)
[2016-04-13] MEDS ORDERED: INSULIN HUMAN REGULAR 1,000 UNITS/10 ML VIAL SQ PRN (15:00)
[2016-04-13 16:03] VITALS: BP 115/70; PULSE 76; RESP 20; TEMP 97.1; O2SAT 93
[2016-04-13 20:00] VITALS: BP 145/82; PULSE 73; RESP 20; TEMP 97.4; O2SAT 96
[2016-04-13] MEDS: amLODIPine BESYLATE 5 MG TAB PO SCH (20:24)
[2016-04-13] MEDS: DULoxetine HCl DR 60 MG CAP PO SCH (20:24)
[2016-04-13 20:45] LABS: INTERNATIONAL NORMALIZED RATIO 0.9 RATIO
[2016-04-14] VITALS (7 sets, daily range): BP systolic 146–180; BP diastolic 73–95; PULSE 66–78; RESP 20; TEMP 95.4–97.6; O2SAT 93–96
[2016-04-14] MEDS: SODIUM CHLOR 0.45% 1000 ML INJ 1,000 ML IV SCH ×2 (03:32→16:40)
[2016-04-14] MEDS: ALPRAZolam 0.25 MG TAB PO PRN ×2 (03:33→23:31)
[2016-04-14 03:44] LABS: POTASSIUM 3.5 MEQ/L (3.5-5.1)
[2016-04-14] MEDS: LEVOTHYROXINE SODIUM 150 MCG TAB PO SCH (05:56)
[2016-04-14] MEDS: PIPERACIL-TAZO 3.375 GM PREMIX 50 ML IV SCH ×4 (05:56→21:59)
[2016-04-14] MEDS: SODIUM CHLORID 0.9% 500 ML IV SCH (07:40)
[2016-04-14] MEDS: FLUTICASONE PROPIONATE 50 MCG/ACT 16 GM NASAL SPRAY EACH NARE SCH ×2 (07:55→21:59)
[2016-04-14] MEDS: METOPROLOL SUCCINATE 25 MG EXTENDED RELEASE TAB PO SCH (08:05)
[2016-04-14] MEDS: MULTIVITAMINS/MINERALS THERAPEUTIC TAB PO SCH (08:05)
[2016-04-14] MEDS: ISOSORBIDE MONONITRATE 30 MG TAB PO SCH (08:05)
[2016-04-14] MEDS: ESTRADIOL 1 MG TAB PO SCH (08:05)
[2016-04-14] MEDS: PRAVASTATIN SOD 80 MG TAB PO SCH (08:05)
[2016-04-14] MEDS: SODIUM CHLORIDE 0.9% FLUSH 5 ML FLUSH FLUSH SCH (08:05)
[2016-04-14] MEDS: traMADol HCL 50 MG TAB PO SCH (08:06)
[2016-04-14] MEDS: carBAMazepine 200 MG TAB PO SCH ×2 (08:06→21:58)
[2016-04-14] MEDS: LORATADINE 10 MG TAB PO SCH (08:06)
[2016-04-14] MEDS: PANTOPRAZOLE SOD 40 MG DELAYED RELEASE TAB PO SCH (08:06)
[2016-04-14] MEDS ORDERED: fentaNYL CITRATE 250 MCG/5 ML AMP ONE (10:32)
[2016-04-14] MEDS ORDERED: MIDAZOLAM HCL 2 MG/2 ML VIAL ONE (10:32)
[2016-04-14] MEDS: HEPARIN SODIUM - SQ 10,000 UNITS/ML VIAL SQ SCH ×2 (11:00→23:30)
[2016-04-14] MEDS ORDERED: BUPIVACAINE HCL PF 0.5% 30 ML VIAL INFIL ONE (11:21)
[2016-04-14] MEDS ORDERED: DO NOT ADM ANY ANTICOAGULANT DRUGS XX PRN (11:29)
[2016-04-14] MEDS ORDERED: MORPHINE SULFATE 4 MG/ML INJ IV PRN (11:30)
[2016-04-14] MEDS ORDERED: IBUPROFEN 400 MG TAB PO PRN (11:30)
[2016-04-14] MEDS ORDERED: SODIUM CHLORIDE 0.9% FLUSH 5 ML FLUSH IVF PRN (11:30)
[2016-04-14] MEDS ORDERED: NALOXONE HCL 0.4 MG/ML AMP IV PRN (11:30)
[2016-04-14] MEDS ORDERED: traMADol HCL 50 MG TAB PO PRN (11:30)
--- NOTE | 2016-04-14 11:39 | PD.OP ---
Operative Report Date of Surgery: Apr 14, 2016 Preoperative Diagnosis: (1) Osteomyelitis of foot, right, acute Postoperative Diagnosis: (1) Osteomyelitis of foot, right, acute Procedure: Procedure 1: Amputation of second toe and second metatarsal right foot for osteomyelitis Procedure 2: Excision of third metatarsal head for osteomyelitis Anesthesia: LMA Surgeon: Francis Mckeon DPM Warehouse [employer] Driver(s): None Operation and Findings: Patient was brought to the OR and placed on the operating table in a supine position and pneumatic right cuff was placed around the patient's right ankle after adequate web roll padding.. Patient was given general relation anesthesia and the right foot was prepped and draped in the year sterile manner. Right foot was elevated above the operating table for a period of 3 minutes at which time the pneumatic ankle cuff was inflated after the appropriate timeout was performed. Attention was directed to the right foot which is noted to have osteomyelitis of the second toe and second metatarsal head and possibly a third metatarsal head which was fractured and with exuberant bone growth. At this time a curvilinear incisions were made around the base of the second toe of the right foot and carried dorsally and made in a curvilinear incision overlying the head of the second and third metatarsals. The incision was deepened around the toe and the entire toe was amputated at the metatarsal phalangeal joint. Incision was deepened using sharp and blunt dissection and the head of the second metatarsal was freed up and resected with an oscillating saw. Attention was then directed to the area of the incision overlying the third metatarsal head where soft tissue was freed up and using an oscillating saw the head of the third metatarsal was resected. The area was flushed with copious amounts of sterile saline. Subcutaneous sutures of 2-0 Vicryl were placed and skin edges were reapproximated and closed with surgical skin ant and 4-0 Prolene. The incision was dressed with Adaptic 4 x 4's and Jo. 10 cc of 0.5% Marcaine was infiltrated for postoperative analgesia. Pneumatic ankle cuff was deflated at the 28 minute cathy endovascular status to the remaining digits of the right foot returned Sponge and instrument count was noted to be within normal. Estimated blood loss was less than 10 cc. The second toe and second metatarsal head was sent to pathology. The third metatarsal head was sent to pathology under separate cover. Patient tolerated the procedures and anesthesia well and left the OR to PACU in apparent satisfactory condition with all vital signs stable and vascular status intact to all digits of the right foot Francis Mckeon DPM Apr 14, 2016 11:39
[2016-04-14] MEDS: ACETAMINOPHEN 1000 MG/100 ML VIAL IV SCH ×3 (12:00→23:29)
--- NOTE | 2016-04-14 12:08 | RADRPT ---
EXAM DATE/TIME: 04/14/2016 11:37 [facility] COMPARISON: FOOT RIGHT LIMITED (2VWS), April 12, 2016, 11:06. INDICATIONS : Post op, right foot second digit amputation. MEDICAL HISTORY : Osteoarthritis. SURGICAL HISTORY : Great toe amputation. ENCOUNTER: Initial ACUITY: 1 day PAIN SCORE: 0/10 LOCATION: Right foot. FINDINGS: Postsurgical changes with resection of the second toe and distal second metatarsal. Amputation of the great toe again seen. Postsurgical changes. Chronic changes of the heads of the third and fourth met atarsals. CONCLUSION: Post surgical changes. Francis Ortiz MD on April 14, 2016 at 12:05 Board Certified Radiologist. This report was verified electronically.
[2016-04-14] MEDS ORDERED: cloNIDine HCL 0.1 MG TAB PO PRN (12:15)
[2016-04-14] MEDS: POTASSIUM CHLORIDE 20 MEQ CONTROLLED RELEASE TAB PO SCH (12:24)
[2016-04-14] MEDS: VANCOMYCIN 1,500 MG/NS 500 ML IV SCH ×2 (12:24)
--- NOTE | 2016-04-14 12:24 | EKG ---
Date Performed: 04/13/2016 Time Performed: 13:42:55 PTAGE: 76 years EKG: Sinus rhythm NORMAL ECG Since PREVIOUS TRACING , no significant change noted PREVIOUS TRACIN01/05/2016 13.15 DOCTOR: Faiza No Interpretating Date/Time 04/14/2016 12:22:52
[2016-04-14] MEDS: LACTATED RINGER'S 1000 ML IV SCH (12:31)
[2016-04-14] MEDS ORDERED: PROPOFOL 200 MG/20 ML AMP IV ONE (13:01)
[2016-04-14] MEDS ORDERED: ePHEDrine/NS 25 MG/5 ML SYR IV ONE (13:01)
[2016-04-14] MEDS ORDERED: PHENYLEPH/NS 1000 MCG/10 ML SYR IV ONE (13:01)
[2016-04-14] MEDS ORDERED: ONDANSETRON HCL 4 MG/2 ML VIAL IV PUSH ONE (13:01)
--- NOTE | 2016-04-14 13:51 | HHI.PR ---
Subjective Subjective Remarks No chest pain Shortness of breath Appetite ggod, improving No headache Anxiety mild Right foot elevated, S/P surgery,04/13 Review of Systems Constitutional Constitutional: Weakness (generalized. 10 point ROS done positives noted in record, other systems negative or unremarkable) Musculoskeletal MS: Weakness, Discomfort/Pain Integumentary Skin: Wounds Skin Remarks Right great toe, amputation in December 2015.. Mild erythema right lower leg Vitals/Results Intake & Output 04/13/16 04/13/16 04/14/16 15:00 23:00 07:00 Intake Total 720 ml 840 ml Balance 720 ml 840 ml Intake Oral 720 ml IV Total 840 ml # Voids 7 0 # Bowel Movements 4 Vital Signs Vital Signs Date Time Temp Pulse Resp B/P Pulse Ox O2 Delivery O2 Flow Rate FiO2 04/14/16 12:57 95.4 66 20 146/79 95 04/14/16 12:19 18 04/14/16 12:00 74 14 155/88 93 Room Air 04/14/16 11:45 73 14 161/91 95 Nasal Cannula 2 04/14/16 11:30 97.7 67 14 179/79 94 Nasal Cannula 2 04/14/16 08:59 16 04/14/16 08:11 97.6 70 20 156/84 95 04/14/16 04:53 97.6 76 20 170/76 93 04/14/16 00:42 96.6 73 20 169/73 96 04/13/16 20:00 97.4 73 20 145/82 96 04/13/16 16:03 97.1 76 20 115/70 93 04/13/16 15:18 18 CBC/BMP: 04/13/16 0647 04/14/16 0314 Lab Results Laboratory Tests Test 04/13/16 04/14/16 20:20 03:14 Prothrombin Time 10.0 SEC Prothromb Time International 0.9 RATIO Ratio Sodium Level 140 MEQ/L Potassium Level 3.5 MEQ/L Chloride Level 106 MEQ/L Carbon Dioxide Level 27.0 MEQ/L Anion Gap 7 MEQ/L Blood Urea Nitrogen 12 MG/DL Creatinine 0.76 MG/DL Estimat Glomerular Filtration 74 ML/MIN Rate Random Glucose 105 MG/DL Calcium Level 8.1 MG/DL Physical Exam General General Appearance: Well Developed, Well Nourished, Anxious Appearance Remarks Mild anxiety over current condition Eyes Eye Exam: Pupils Equal, Pupils Reactive, Sclera White Ears & Nose Ears & Nose Exam: Nasal Mucosa [place] Throat Throat Exam: Oral Mucosa [place] & Moist Neck Neck Exam: Neck Supple Pulmonary Resp Exam: Clear Bilaterally, Breath Sounds Equal, No Distress Cardiology CV Exam: Regular Gastrointestinal/Abdomen GI Exam: Soft, Non-Tender, Bowel Sounds Present Genitourinary Exam: Clear Urine Musculoskeletal MS Exam: Unable to Ambulate, Infections MS Remarks Ousted for osteomyelitis second toe, third toe. Recent great toe removed right foot Dressing clean dry and intact Extremeties Extremities Exam: No Edema Neurologic Neuro Exam: Alert, Awake, Oriented, Speech Clear, Moving All Extremities Assessment/Plan Assessment/Plan Assessment and Plan Problem List: (1) Osteomyelitis of foot, right, acute, S/P hallux amputation, great toe and 1st (2) Hypertension, meds (3) Hyperlipidemia, meds (4) Hypothyroid, meds (5) Diet-controlled diabetes mellitus (6) Peripheral neuropathy, secondary to DM (7) CAD (coronary artery disease) hypokalemia 8. Hypokalemia, resolved. 76-year-old female with previous osteomyelitis of right hallux, status post amputation. Medical management Hallux amputation right foot, 04/13/16 . Swelling of the second and third MPJs of the right foot. Swelling of the second toe of the right foot, due to osteomyelitis -Dr. Mckeon has evaluated patient, input appreciated. elevated. labs monitored. nutritional support. Pain management Diet -controlled diabetes -Accu-Cheks before meals and at bedtime with low-dose insulin therapy Heparin for DVT prophylaxis Hypokalemia resolved, monitor This patient was seen by myself and Dr. Abraham. This H/P is written on his behalf. D/W daughters and nurse. Avril Madrigal Apr 14, 2016 13:51 She understands the risk of the procedure. She wishes to proceed with the planned surgery. Consent orders are written. . This is per power and recovery superintendent Plan surgery in the a.m.. Patient is aware and has been educated on plan of care Supplemental K given. Will recheck lab in the morning This patient was seen by myself and Dr. Abraham. This H/P is written on his behalf. Apr 12, 2016 16:33 Avril Madrigal Apr 14, 2016 13:51
[2016-04-14] MEDS: DULoxetine HCl DR 60 MG CAP PO SCH (21:58)
[2016-04-14] MEDS: amLODIPine BESYLATE 5 MG TAB PO SCH (21:58)
[2016-04-14] MEDS: SODIUM CHLORIDE 0.9% FLUSH 5 ML FLUSH IVF SCH (21:59)
[2016-04-15] VITALS (7 sets, daily range): BP systolic 122–150; BP diastolic 61–80; PULSE 61–68; RESP 18–20; TEMP 95.4–98.1; O2SAT 93–97
[2016-04-15] MEDS: PIPERACIL-TAZO 3.375 GM PREMIX 50 ML IV SCH ×4 (04:53→22:01)
[2016-04-15] MEDS: LEVOTHYROXINE SODIUM 150 MCG TAB PO SCH (04:54)
[2016-04-15] MEDS: SODIUM CHLOR 0.45% 1000 ML INJ 1,000 ML IV SCH ×2 (04:54→14:37)
[2016-04-15] MEDS: ACETAMINOPHEN 1000 MG/100 ML VIAL IV SCH (04:54)
[2016-04-15 08:17] LABS: BICARBONATE 24.7 MEQ/L (21.0-32.0); POTASSIUM 3.7 MEQ/L (3.5-5.1)
[2016-04-15] MEDS: traMADol HCL 50 MG TAB PO SCH ×2 (09:00→09:32)
[2016-04-15] MEDS: FLUTICASONE PROPIONATE 50 MCG/ACT 16 GM NASAL SPRAY EACH NARE SCH ×2 (09:31→22:09)
[2016-04-15] MEDS: ESTRADIOL 1 MG TAB PO SCH (09:31)
[2016-04-15] MEDS: LORATADINE 10 MG TAB PO SCH (09:31)
[2016-04-15] MEDS: SODIUM CHLORIDE 0.9% FLUSH 5 ML FLUSH IVF SCH ×2 (09:31→21:00)
[2016-04-15] MEDS: METOPROLOL SUCCINATE 25 MG EXTENDED RELEASE TAB PO SCH (09:32)
[2016-04-15] MEDS: carBAMazepine 200 MG TAB PO SCH ×2 (09:32→22:04)
[2016-04-15] MEDS: PANTOPRAZOLE SOD 40 MG DELAYED RELEASE TAB PO SCH (09:32)
[2016-04-15] MEDS: POTASSIUM CHLORIDE 20 MEQ CONTROLLED RELEASE TAB PO SCH (09:32)
[2016-04-15] MEDS: ISOSORBIDE MONONITRATE 30 MG TAB PO SCH (09:32)
[2016-04-15] MEDS: PRAVASTATIN SOD 80 MG TAB PO SCH (09:32)
[2016-04-15] MEDS: MULTIVITAMINS/MINERALS THERAPEUTIC TAB PO SCH (09:32)
[2016-04-15] MEDS: HEPARIN SODIUM - SQ 10,000 UNITS/ML VIAL SQ SCH ×2 (11:39→23:25)
--- NOTE | 2016-04-15 12:25 | HHI.PR ---
Subjective Subjective Remarks S/P 1: Amputation of second toe and second metatarsal right foot for osteomyelitis/ 2: Excision of third metatarsal head for osteomyelitis 04/14/2016 minimal pain wants to get up and walk no n/v right facial swelling noted, states she injured face many years ago and has a chronic bump, it's erythematous, non tender no fever no cp no sob Review of Systems Constitutional Constitutional: Weakness (generalized. 10 point ROS done positives noted in record, other systems negative or unremarkable) Constitutional Remarks 12 point ROS completed, negative except as noted above Musculoskeletal MS: Weakness, Discomfort/Pain Integumentary Skin: Wounds Vitals/Results Intake & Output 04/14/16 04/14/16 04/15/16 15:00 23:00 07:00 Intake Total 550 ml 1751 ml 705 ml Output Total 300 ml Balance 250 ml 1751 ml 705 ml Intake Oral 660 ml IV Total 50 ml 1091 ml 705 ml Other 500 ml Output Urine Total 300 ml # Voids 5 1 Vital Signs Vital Signs Date Time Temp Pulse Resp B/P Pulse Ox O2 Delivery O2 Flow Rate FiO2 04/15/16 12:00 96.4 64 20 124/67 93 04/15/16 08:00 96.4 63 20 134/73 96 04/15/16 07:52 97 04/15/16 05:10 96.4 63 20 136/71 96 04/15/16 00:27 97.0 61 20 141/61 95 04/14/16 22:13 95 21 04/14/16 20:37 96.4 76 20 180/84 96 04/14/16 16:17 95.8 78 20 180/95 93 04/14/16 12:57 95.4 66 20 146/79 95 CBC/BMP: 04/13/16 0647 04/15/16 0728 Lab Results Laboratory Tests Test 04/15/16 07:28 Sodium Level 140 MEQ/L Potassium Level 3.7 MEQ/L Chloride Level 106 MEQ/L Carbon Dioxide Level 24.7 MEQ/L Anion Gap 9 MEQ/L Blood Urea Nitrogen 10 MG/DL Creatinine 0.72 MG/DL Estimat Glomerular Filtration 79 ML/MIN Rate Random Glucose 101 MG/DL Calcium Level 8.3 MG/DL Physical Exam General General Appearance: Well Developed, Well Nourished, No Acute Distress, Comfortable Eyes Eye Exam: Pupils Equal, Pupils Reactive, Extraocular Movement Intact Ears & Nose Ears & Nose Exam: Nasal Mucosa [place] Throat Throat Exam: Oral Mucosa [place] & Moist Neck Neck Exam: Neck Supple Pulmonary Resp Exam: Clear Bilaterally, Breath Sounds Equal, No Distress Cardiology CV Exam: Regular Gastrointestinal/Abdomen GI Exam: Soft, Non-Tender, Bowel Sounds Present, Non-Distended Musculoskeletal MS Exam: Normal Tone, Unable to Ambulate, Infections MS Remarks Right foot with dressing D/I Integumentary Skin Exam: Warm, Dry, Ulcer(s) Skin Remarks left cheekbone with swelling and erythema, non tender Extremeties Extremities Exam: No Edema Neurologic Neuro Exam: Alert, Awake, Oriented, Speech Clear, Moving All Extremities, No Focal Deficits Psychiatric Psych Exam: Appropriate Responses VTE Prophylaxis VTE Prophylaxis Meds: Heparin Assessment/Plan Problem List: (1) Osteomyelitis of foot, right, acute (2) Postoperative state (3) Diet-controlled diabetes mellitus (4) Hypertension (5) Hyperlipidemia (6) Fracture of metatarsal (7) CAD (coronary artery disease) (8) Hypothyroid (9) Pressure ulcer of right foot, stage 3 (10) Peripheral neuropathy (11) Facial cellulitis Assessment/Plan 76-year-old female with previous osteomyelitis of right hallux, status post amputation. Returns to emergency room with increased swelling and erythema right foot, has open wound to the plantar aspect of the right foot. Admitted for recurrent foot ulcer, possible osteomyelitis. S/P 1: Amputation of second toe and second metatarsal right foot for osteomyelitis/ 2: Excision of third metatarsal head for osteomyelitis 04/14/2016 -Dr. Mckeon following pt, input appreciated. Pain management -Post op care -continue abs -Cultures + staph aureus, sens noted Facial erythema left face, ? cellulitis -continue antibiotics -monitor for ocular involvement Neuropathy -continue Cymbalta and Tegretol Diet -controlled diabetes -Accu-Cheks before meals and at bedtime with low-dose insulin therapy Hypertension, stable -continue home medications CAD stable Continue home medications Heparin for DVT prophylaxis PT for eval and tx wound care per podiatry hopefully dc sometime this week, [facility] D/W RN D/W Dr. Castro D/W pt. This patient was seen by myself and Dr. Castro. This note is written on his behalf. Problem Qualifiers (1) Hypertension: Qualified Code: I10 - Essential hypertension (2) Hyperlipidemia: Qualified Code: E78.5 - Hyperlipidemia, unspecified hyperlipidemia type (3) Fracture of metatarsal: Qualified Code: S92.321G - Closed displaced fracture of second metatarsal bone of right foot with delayed healing, subsequent encounter (4) CAD (coronary artery disease): Qualified Code: I25.10 - Coronary artery disease involving [place] coronary artery of [place] heart without angina pectoris (5) Hypothyroid: Qualified Code: E03.9 - Hypothyroidism, unspecified type (6) Peripheral neuropathy: Qualified Code: G60.9 - Idiopathic peripheral neuropathy Yaneli Solano Apr 15, 2016 12:25
--- NOTE | 2016-04-15 12:48 | PD.POD ---
Subjective Podiatric Problems Idiopathic peripheral neuropathy Osteomyelitis of the second toe and second metatarsal and possible third metatarsal right foot. Status post excision of osteomyelitic bone Ulceration subsecond metatarsal head right foot Pain scale used: 0-10 numeric scale Pain score: 0 Remarks Patient is a 76-year-old female who I have followed in the wound Center for osteomyelitis of the hallux. She is status post resection and amputation of the right hallux with good healing. She started having swelling of the second and third metatarsal phalangeal joint. Radiographs were obtained which showed a fractured second and third metatarsal head. She developed an ulcer under the second metatarsal head. Patient called the office and I had her admitted [facility] shows osteomyelitis of the second metatarsal phalangeal joint. There is periosteal reaction at the third metatarsal. Patient underwent surgical excision of the bone yesterday. She is without complaints at this time. Past Med/Surg/Social History Past Medical History HEENT: REPORTS HX OF: Cataracts, DENIES HX OF: Glaucoma, Recurrent ear infections, Recurrent sinusitis, Other HEENT history Endocrine: REPORTS HX OF: Hypothyroidism, DENIES HX OF: Diabetes mellitus, Graves disease, Hyperthyroidism, Other endocrine history Respiratory: DENIES HX OF: Allergies/hay fever, Asthma, COPD, CPAP use, Sleep apnea, Other respiratory history Cardiovascular: REPORTS HX OF: Cardiac arrhythmias, Deep venous thrombosis, Heart valve disease, Hypertension, DENIES HX OF: Abdominal aortic aneurysm, Angina, Atrial fibrillation, Coronary artery disease, Heart failure, Hyperlipidemia, Myocardial infarction, Peripheral vascular dz, Other CV history Gastrointestinal: REPORTS HX OF: GERD, DENIES HX OF: Colitis, Irritable bowel syndrome, Liver disease, Pancreatitis, Peptic ulcer disease, Other GI history Genitourinary: DENIES HX OF: Chlamydia, Gonorrhea, Hemodialysis, Herpes genitalis, Human papillomavirus, Kidney disease, Kidney failure, Kidney stones, Past UTI, Peritoneal dialysis, Urinary incontinence, Other history Gynecologic: DENIES HX OF: Abnormal pap smear, Chronic pelvic pain, Endometriosis, PID, Polycystic ovarian synd, Recurrent vaginal infxn, Other certified juvenile probation officer history Musculoskeletal: REPORTS HX OF: Osteoarthritis, DENIES HX OF: Fibromyalgia, Fractures, Gout, Osteoporosis, Rheumatoid arthritis, Other musculoskeletal hx Cancer/Hematology: REPORTS HX OF: Thyroid cancer, DENIES HX OF: Anemia, Bladder Cancer, Blood cancer, Brain cancer, Breast cancer, Colorectal cancer, Endocrine cancer, Eye cancer, GI cancer, cancer, Kidney cancer, Leukemia, Liver cancer, Lung cancer, Lymphoma, Musculoskeletal cancer, Neurologic cancer, Oral cancer, Skin cancer, Stomach cancer, Other cancer/hematology Cancer - female: DENIES HX OF: Cervical cancer, Ovarian cancer, Uterine cancer Infectious disease: DENIES HX OF: AIDS, Chickenpox, Hepatitis, HIV, Measles, MRSA, Mumps, Polio, Positive PPD, Rheumatic fever, Rubella, Syphilis, Tuberculosis, Vanc-resistant enterococc, Other inf disease history Integumentary: REPORTS HX OF: Psoriasis, DENIES HX OF: Acne, Eczema, Other integumentary hx Neurologic: REPORTS HX OF: Peripheral neuropathy, Restless leg syndrome, Stroke , DENIES HX OF: ADHD, Autism, Dementia, Developmental delay, Headaches, Multiple sclerosis, Parkinson disease, Seizures, Transient ischemic attack, Other neurologic history Psychiatric: REPORTS HX OF: Depression, DENIES HX OF: Anorexia nervosa, Anxiety, Bipolar disorder, Bulimia, Schizophrenia, Other psychiatric history Genetic/metabolic: DENIES HX OF: Cystic fibrosis, Down syndrome, Other genetic history, Other metabolic history Events: DENIES HX OF: Anaphylaxis, Gunshot wound, Motor vehicle accident, Other events Disabilities: DENIES HX OF: Hearing deficit, Vision deficit, Hemiparesis, Paraplegia, Quadriplegia, Other disabilities Past Surgical History HEENT: REPORTS HX OF: Cataract extraction, Dental surgery, Other throat surgery , DENIES HX OF: Laryngectomy, Tonsillectomy, Other head surgery, Other eye surgery, Other ear surgery, Other nasal surgery Endocrine: REPORTS HX OF: Thyroid surgery, DENIES HX OF: Parathyroidectomy, Other endocrine surgery Respiratory: DENIES HX OF: Bronchoscopy, Lobectomy, Other chest surgery Cardiovascular: REPORTS HX OF: Angiogram, Pacemaker, DENIES HX OF: Angioplasty , CABG surgery, Carotid endarterectomy, Coronary stent, Heart transplant, Valve replacement, Other cardiac surgery Gastrointestinal: REPORTS HX OF: Appendectomy, DENIES HX OF: Cholecystectomy, Colectomy, subtotal, Colectomy, total, Gastric bypass, Hernia repair, Splenectomy, Other GI surgery Genitourinary: REPORTS HX OF: Bladder surgery, DENIES HX OF: Kidney stone extraction, Nephrectomy, Other surgery Gynecologic: REPORTS HX OF: Hysterectomy, Tubal ligation, DENIES HX OF: Cervical conization/LEEP, delivery, Oophorectomy, Other certified juvenile probation officer surgery Musculoskeletal: REPORTS HX OF: Joint replacement (right knee), Other musculoskeletal srg (amputation of the right hallux) Integumentary: DENIES HX OF: Skin cancer removal, Other integumentary surg Neurologic: DENIES HX OF: Craniotomy, Spinal surgery, Other neurologic surgery Breast: REPORTS HX OF: Breast biopsy, Lumpectomy, DENIES HX OF: Mastectomy, bilateral, Mastectomy, left, Mastectomy, right, Other breast surgery Social History Smoking Status: Former Smoker Review of Systems Notes Postoperative changes to the right foot Constitutional: COMPLAINS OF: Good general health Musculoskeletal: COMPLAINS OF: Deformaties Neurological: COMPLAINS OF: Numbness/tingling, Changes in sensation Objective Vital Signs Vital Signs Date Time Temp Pulse Resp B/P Pulse Ox O2 Delivery O2 Flow Rate FiO2 04/15/16 12:00 96.4 64 20 124/67 93 04/15/16 08:00 96.4 63 20 134/73 96 04/15/16 07:52 97 04/15/16 05:10 96.4 63 20 136/71 96 04/15/16 00:27 97.0 61 20 141/61 95 04/14/16 22:13 95 21 04/14/16 20:37 96.4 76 20 180/84 96 04/14/16 16:17 95.8 78 20 180/95 93 04/14/16 12:57 95.4 66 20 146/79 95 Coded Allergies: Aspirin (Verified Allergy, Severe, gi upset, 04/12/16) Codeine (Verified Allergy, Severe, n/v, 04/12/16) Lortab (Verified Allergy, Severe, n/v, 04/12/16) Pentazocine (Verified Allergy, Severe, 04/12/16) unknown reaction Doxycycline (Verified Allergy, Unknown, 04/12/16) Levaquin (Verified Allergy, Unknown, 04/12/16) *MDRO Multi-Drug Resistant Organism (Verified Adverse Reaction, Unknown, ) MRSA (toe wound) - 10/10/15 Uncoded Allergies: toviaz (Allergy, Severe, angina pain, 07/20/10) NONE (Allergy, Unknown, 11/16/02) GERONIMO (Allergy, Unknown, 07/20/10) hallucinates Medications and IVs Current Medications Piperacillin Sod/ Tazobactam Sod 100 ml @ 200 mls/hr ONCE ONCE IV Last administered on 04/12/16 11:11; Start 04/12/16 at 11:00; Stop 04/12/16 at 11:29; Status DC Vancomycin HCl 1000 mg/Sodium Chloride 250 ml @ 125 mls/hr ONCE ONCE IV Last administered on 04/12/16 12:03; Start 04/12/16 at 11:00; Stop 04/12/16 at 12:59; Status DC Sodium Chloride (03/11 NS 1000 ml Inj) 1,000 ml @ 75 mls/hr [id number] IV Last administered on 04/15/16 04:54; Start 04/12/16 at 11:01 IV Flush (NS Flush) 2 ml UNSCH PRN FLUSH FLUSH AFTER USING IV ACCESS; Start 04/12/16 at 11:15; Stop 04/14/16 at 11:34; Status DC IV Flush (NS Flush) 2 ml BID FLUSH Last administered on 04/14/16 08:05; Start 04/12/16 at 21:00; Stop 04/14/16 at 11:35; Status DC Acetaminophen (Tylenol) 650 mg Q4H PRN PO TEMP > 100.4 Last administered on 04/13 14:04; Start 04/12/16 at 11:15 Ondansetron HCl (Zofran Inj) 4 mg Q6H PRN IVP NAUSEA OR VOMITING; Start at 11:15 Heparin Sodium (Porcine) (Heparin Inj) 5,000 units Q12H SQ Last administered on 04/15/16 11:39; Start 04/12/16 at 12:00 Naloxone HCl (Narcan Inj) 0.4 mg UNSCH PRN IV SEE LABEL COMMENTS; Start at 11:15; Stop 04/14/16 at 11:36; Status DC Alprazolam (Xanax) 0.25 mg DAILY PRN PO ANXIETY Last administered on 04/14/16 23:31; Start 04/12/16 at 11:15 Carbamazepine (TEGretol) 200 mg BID PO Last administered on 04/15/16 09:32; Start 04/12/16 at 21:00 Celecoxib (CeleBREX) 200 mg DAILY PRN PO PAIN; Start 04/12/16 at 11:15 Duloxetine HCl (Cymbalta Dr) 60 mg HS PO Last administered on 04/14/16 21:58; Start 04/12/16 at 21:00 Estradiol (Estradiol) 0.5 mg DAILY PO Last administered on 04/15/16 09:31; Start 04/13/16 at 09:00 Fluticasone Propionate (Flonase Daryl Spr) 1 spray BID EACH NARE Last administered on 04/15/16 09:31; Start 04/12/16 at 21:00 Isosorbide Mononitrate (Imdur) 30 mg DAILY PO Last administered on 04/15/16 09: 32; Start 04/13/16 at 09:00 Levothyroxine Sodium (Synthroid) 150 mcg DAILY@0600 PO Last administered on 04/15 04:54; Start 04/13/16 at 06:00 Lidocaine HCl (Lidoderm 5% Patch.12 Hr) 1 patch DAILY PRN T-DERMAL PAIN; Start 04/12/16 at 11:15 Metoprolol Succinate (Toprol Xl) 25 mg DAILY PO Last administered on 04/15/16 09:32; Start 04/13/16 at 09:00 Multivitamins/ Minerals Therapeutic (Theragran M Tab) 1 tab DAILY PO Last administered on 04/15/16 09:32; Start 04/13/16 at 09:00 Pantoprazole Sodium (Protonix) 40 mg DAILY PO Last administered on 04/15/16 09: 32; Start 04/13/16 at 09:00 Loratadine (Claritin) 10 mg DAILY PO Last administered on 04/15/16 09:31; Start 04/13/16 at 09:00 Amlodipine Besylate (Norvasc) 2.5 mg HS PO Last administered on 04/14/16 21:58 ; Start 04/12/16 at 21:00 Non-Formulary Medication 25 mg DAILY PO ; Start 04/13/16 at 09:00; Status UNV Pravastatin Sodium (Pravachol) 80 mg DAILY PO Last administered on 04/15/16 09: 32; Start 04/13/16 at 09:00 Tramadol HCl (Ultram) 50 mg DAILY PO Last administered on 04/14/16 08:06; Start 04/13/16 at 09:00 Zolpidem Tartrate (Ambien) 5 mg HS PRN PO INSOMNIA; Start 04/12/16 at 12:00 Patient Own Medication PT OWN MED: MYRBET... DAILY PO ; Start 04/13/16 at 09:00; Status Hold Piperacillin Sod/ Tazobactam Sod 50 ml @ 100 mls/hr Q6H IV Last administered on 04/15/16 11:36; Start 04/12/16 at 23:00 Pharmacy Profile Note (Vancomycin Consult Pharmacy) 0 ml @ 0 mls/hr UNSCH OTHER ; Start 04/12/16 at 17:00 Dextrose (D50w (Vial) Inj) 25 ml UNSCH PRN IV PUSH HYPOGLYCEMIA-SEE COMMENTS; Start 04/12/16 at 17:00 Glucagon (Glucagon Inj) 1 mg UNSCH PRN OTHER HYPOGLYCEMIA-SEE COMMENTS; Start 04/12/16 at 17:00 Insulin Aspart 1 1 ACHS SLIDING SCALE SQ ; Start 04/12/16 at 21:00; Stop at 15:48; Status DC Vancomycin HCl 1000 mg/Sodium Chloride 250 ml @ 250 mls/hr ONCE ONCE IV Last administered on 04/12/16 01:00; Start 04/12/16 at 23:00; Stop 04/12/16 at 23:59; Status DC Vancomycin HCl/ Sodium Chloride (Vancomycin Inj/ NS 500 ml Inj) 515 ml @ 257.5 mls/ hr Q24H IV Last administered on 04/14/16 12:24; Start 04/13/16 at 14:00 Miscellaneous Information SPECIFIC LAB TO BE RAJ... ONCE ONCE XX ; Start at 13:45; Stop 04/15/16 at 13:46 Potassium Chloride 40 meq 40 meq ONCE ONCE PO Last administered on 04/13/16 12 :55; Start 04/13/16 at 12:45; Stop 04/13/16 at 12:46; Status DC Lactated Ringer's 1,000 ml @ 30 mls/hr Q24H IV ; Start 04/13/16 at 15:00 Sodium Chloride (NS 500 ml Inj) 500 ml @ 30 mls/hr [id number] IV Last administered on 04/14/16 07:40; Start 04/13/16 at 15:00; Stop 04/14/16 at 14:59; Status DC Insulin Human Regular (NovoLIN R INJ) See Protocol Table ... UNSCH X1 PRN SQ SEE PROTOCOL; Start 04/13/16 at 15:00; Stop 04/14/16 at 14:59; Status DC Metoprolol Tartrate (Lopressor) 25 mg UNSCH X1 PRN PO SEE LABEL COMMENTS; Start 04/13/16 at 15:00; Stop 04/14/16 at 14:59; Status DC Midazolam HCl (Versed Inj) 2 mg STK-MED ONCE .ROUTE ; Start 04/14/16 at 10:32; Stop 04/14/16 at 10:33; Status DC Fentanyl Citrate (fentaNYL INJ) 250 mcg STK-MED ONCE .ROUTE ; Start 04/14/16 at 10:32; Stop 04/14/16 at 10:33; Status DC Bupivacaine HCl (Marcaine Pf 0.5% Inj) 30 ml STK-MED ONCE INFIL Last administered on 04/14/16 11:21; Start 04/14/16 at 11:21; Stop 04/14/16 at 11:22; Status DC IV Flush (NS Flush) 2 ml UNSCH PRN IVF FLUSH AFTER USING IV ACCESS; Start at 11:30 IV Flush (NS Flush) 2 ml BID IVF Last administered on 04/15/16 09:31; Start 04/14/16 at 21:00 Ibuprofen (Motrin) 400 mg Q6H PRN PO PAIN SCALE 1 TO 2; Start 04/14/16 at 11:30 Morphine Sulfate (Morphine Inj) 4 mg Q3H PRN IV Pain 6-10;if unable to take PO ; Start 04/14/16 at 11:30 Acetaminophen (Ofirmev Inj) 1,000 mg Q6H IV Last administered on 04/15/16 04:54 ; Start 04/14/16 at 12:00; Stop 04/15/16 at 06:01; Status DC Tramadol HCl (Ultram) 50 mg Q4H PRN PO PAIN SCALE 3 TO 5; Start 04/14/16 at 11: 30 Naloxone HCl (Narcan Inj) 0.4 mg UNSCH PRN IV SEE LABEL COMMENTS; Start at 11:30 Miscellaneous Information ALL NURSING DEPARTME... UNSCH PRN XX SEE LABEL COMMENTS; Start 04/14/16 at 11:29; Stop 04/15/16 at 11:28; Status DC Clonidine (Catapres) 0.1 mg Q6H PRN PO SBP>160, DBP>90 Last administered on 04/14 17:55; Start 04/14/16 at 12:15 Potassium Chloride (KCl) 20 meq DAILY PO Last administered on 04/15/16 09:32; Start 04/14/16 at 12:15 Other Results Laboratory Tests Test 04/14/16 04/15/16 03:14 07:28 Sodium Level 140 MEQ/L 140 MEQ/L Potassium Level 3.5 MEQ/L 3.7 MEQ/L Chloride Level 106 MEQ/L 106 MEQ/L Carbon Dioxide Level 27.0 MEQ/L 24.7 MEQ/L Anion Gap 7 MEQ/L 9 MEQ/L Blood Urea Nitrogen 12 MG/DL 10 MG/DL Creatinine 0.76 MG/DL 0.72 MG/DL Estimat Glomerular Filtration 74 ML/MIN 79 ML/MIN Rate Random Glucose 105 MG/DL 101 MG/DL Calcium Level 8.1 MG/DL 8.3 MG/DL Exam-Podiatry Remarks Dressing to right foot is dry and intact. Minimal dried blood noted on the dressing. Toes are warm pink and gio upon compression. No signs of infection or cellulitis. Constitutional General appearance: comfortable Nutritional status: normal Orientation: alert and oriented x3 Vascular/Lymphatic Exam R Dorsails Pedis: Palpable L Dorsails Pedis: Palpable R Posterior Tibial: Palpable L Posterior Tibial: Palpable Neurologic Exam Present on right: Tingling, Paraesthesia Present on left: Tingling, Paraesthesia Musculoskeletal Exam Details Amputated hallux and an second toe right foot Assessment & Plan Diagnosis: (1) Pressure ulcer, stage II, skin breakdown Status: Acute (2) Pain in toe of right foot Status: Acute (3) Subluxation of metatarsophalangeal joint of toe Status: Acute (4) Peripheral neuropathy Status: Chronic (5) Osteomyelitis of toe of right foot Status: Acute (6) Osteomyelitis of foot, right, acute Status: Acute A/P PLAN: Physical therapy for nonweightbearing ambulation of the right foot with walker. I will change her dressing tomorrow. If incision site looks good she can be [facility]. Continue to follow Problem Qualifiers (1) Subluxation of metatarsophalangeal joint of toe: Qualified Code: S93.149D - Subluxation of metatarsophalangeal joint of toe, subsequent encounter (2) Peripheral neuropathy: Qualified Code: G60.9 - Idiopathic peripheral neuropathy Francis Mckeon DPM Apr 15, 2016 12:48
[2016-04-15] MEDS ORDERED: PHARMACY ORDERED LAB XX ONE (13:45)
[2016-04-15] MEDS: VANCOMYCIN 1,500 MG/NS 500 ML IV SCH ×2 (14:32)
[2016-04-15] MEDS: LACTATED RINGER'S 1000 ML IV SCH (15:00)
[2016-04-15] MEDS: DULoxetine HCl DR 60 MG CAP PO SCH (22:04)
[2016-04-15] MEDS: amLODIPine BESYLATE 5 MG TAB PO SCH (22:08)
[2016-04-16] MEDS: ALPRAZolam 0.25 MG TAB PO PRN (00:40)
[2016-04-16] MEDS: VANCOMYCIN 1,000 MG/NS 250 ML IV SCH ×4 (02:04→14:52)
[2016-04-16 04:00] VITALS: BP 118/67; PULSE 51; RESP 18; TEMP 97; O2SAT 97
[2016-04-16] MEDS: PIPERACIL-TAZO 3.375 GM PREMIX 50 ML IV SCH ×4 (04:28→21:36)
[2016-04-16] MEDS: LEVOTHYROXINE SODIUM 150 MCG TAB PO SCH (05:33)
[2016-04-16 08:00] VITALS: BP 168/91; PULSE 66; RESP 20; TEMP 95.3; O2SAT 97
[2016-04-16] MEDS: SODIUM CHLORIDE 0.9% FLUSH 5 ML FLUSH IVF SCH ×2 (09:00→21:32)
[2016-04-16 09:18] VITALS: O2SAT 93
[2016-04-16] MEDS: FLUTICASONE PROPIONATE 50 MCG/ACT 16 GM NASAL SPRAY EACH NARE SCH ×2 (09:55→21:32)
[2016-04-16] MEDS: POTASSIUM CHLORIDE 20 MEQ CONTROLLED RELEASE TAB PO SCH (09:55)
[2016-04-16] MEDS: SODIUM CHLOR 0.45% 1000 ML INJ 1,000 ML IV SCH ×2 (09:55→21:38)
[2016-04-16] MEDS: MULTIVITAMINS/MINERALS THERAPEUTIC TAB PO SCH (09:56)
[2016-04-16] MEDS: PANTOPRAZOLE SOD 40 MG DELAYED RELEASE TAB PO SCH (09:56)
[2016-04-16] MEDS: LORATADINE 10 MG TAB PO SCH (09:56)
[2016-04-16] MEDS: traMADol HCL 50 MG TAB PO SCH (09:56)
[2016-04-16] MEDS: PRAVASTATIN SOD 80 MG TAB PO SCH (09:56)
[2016-04-16] MEDS: ESTRADIOL 1 MG TAB PO SCH (09:56)
[2016-04-16] MEDS: ISOSORBIDE MONONITRATE 30 MG TAB PO SCH (09:56)
[2016-04-16] MEDS: carBAMazepine 200 MG TAB PO SCH ×2 (09:56→21:31)
[2016-04-16] MEDS: METOPROLOL SUCCINATE 25 MG EXTENDED RELEASE TAB PO SCH (09:56)
--- NOTE | 2016-04-16 11:46 | HHI.PR ---
Subjective Subjective Remarks S/P 1: Amputation of second toe and second metatarsal right foot for osteomyelitis/ 2: Excision of third metatarsal head for osteomyelitis 04/14/2016 minimal pain Has been out of bed with physical therapy Right facial swelling and erythema gone no fever no cp no sob Family at bedside, patient agreeable with going to rehabilitation (Yaneli Solano) Review of Systems Constitutional Constitutional: Weakness (generalized. 10 point ROS done positives noted in record, other systems negative or unremarkable) Constitutional Remarks 12 point ROS completed, negative except as noted above (Yaneli Solano) Musculoskeletal MS: Weakness, Discomfort/Pain (Yaneli Solano) Integumentary Skin: Wounds (Yaneli Solano) Vitals/Results Intake & Output 04/15/16 04/15/16 04/16/16 15:00 23:00 07:00 Intake Total 1455 ml 732 ml Balance 1455 ml 732 ml IV Total 1455 ml 732 ml # Voids 2 6 # Bowel Movements 0 Vital Signs Vital Signs Date Time Temp Pulse Resp B/P Pulse Ox O2 Delivery O2 Flow Rate FiO2 04/16/16 09:18 93 21 04/16/16 08:00 95.3 66 20 168/91 97 04/16/16 04:00 97.0 51 18 118/67 97 04/15/16 20:00 98.1 68 18 150/80 96 04/15/16 16:00 95.4 65 20 122/70 95 04/15/16 12:00 96.4 64 20 124/67 93 (Yaneli Solano) CBC/BMP: 04/13/16 0647 04/15/16 0728 Lab Results Laboratory Tests Test 04/15/16 13:50 Vancomycin Level Trough 7.1 MCG/ML (Yaneli Solano) Physical Exam General General Appearance: Well Developed, Well Nourished, No Acute Distress, Comfortable (Yaneli Solano) Eyes Eye Exam: Pupils Equal, Pupils Reactive, Extraocular Movement Intact (Yaneli Solano) Ears & Nose Ears & Nose Exam: Nasal Mucosa Medley (Yaneli Solano) Throat Throat Exam: Oral Mucosa Medley & Moist (Yaneli Solano) Neck Neck Exam: Neck Supple (Yaneli Solano. BODY CLEANER) Pulmonary Resp Exam: Clear Bilaterally, Breath Sounds Equal, No Distress (Yaneli Solano. BODY CLEANER) Cardiology CV Exam: Regular (Yaneli Solano. BODY CLEANER) Gastrointestinal/Abdomen GI Exam: Soft, Non-Tender, Bowel Sounds Present, Non-Distended (Yaneli Solano. BODY CLEANER) Musculoskeletal MS Exam: Normal Tone, Unable to Ambulate, Infections MS Remarks Right foot with dressing D/I (Yaneli Solano. BODY CLEANER) Integumentary Skin Exam: Warm, Dry, Ulcer(s) Skin Remarks left cheekbone with swelling and erythema, now resolved (Yaneli Solano. BODY CLEANER) Extremeties Extremities Exam: No Edema (Yaneli Solano. BODY CLEANER) Neurologic Neuro Exam: Alert, Awake, Oriented, Speech Clear, Moving All Extremities, No Focal Deficits (Yaneli Solano. BODY CLEANER) Psychiatric Psych Exam: Appropriate Responses (Yaneli Solano. BODY CLEANER) VTE Prophylaxis VTE Prophylaxis Meds: Heparin (Yaneli SolanoP) Assessment/Plan Problem List: (1) Osteomyelitis of foot, right, acute (2) Postoperative state (3) Diet-controlled diabetes mellitus (4) Hypertension (5) Hyperlipidemia (6) Fracture of metatarsal (7) CAD (coronary artery disease) (8) Hypothyroid (9) Pressure ulcer of right foot, stage 3 (10) Peripheral neuropathy (11) Facial cellulitis Assessment/Plan 76-year-old female with previous osteomyelitis of right hallux, status post amputation. Returns to emergency room with increased swelling and erythema right foot, has open wound to the plantar aspect of the right foot. Admitted for recurrent foot ulcer, possible osteomyelitis. S/P 1: Amputation of second toe and second metatarsal right foot for osteomyelitis/ 2: Excision of third metatarsal head for osteomyelitis 04/14/2016 -Dr. Mckeon following pt, input appreciated. Pain management -Post op care -continue abs -Cultures + staph aureus, sens noted Facial erythema left face, ? cellulitis-resolved -continue antibiotics -monitor for ocular involvement Neuropathy -continue Cymbalta and Tegretol Diet -controlled diabetes -Accu-Cheks before meals and at bedtime with low-dose insulin therapy Hypertension, stable -continue home medications CAD stable Continue home medications Heparin for DVT prophylaxis PT for eval and tx wound care per podiatry Discharge to SNF tomorrow D/W RN D/W Dr. Castro D/W pt. This patient was seen by myself and Dr. Castro. This note is written on his behalf. (Yaneli Solano) Assessment/Plan Patient seen and examined as above [id number] time spent with the patient Labs reviewed Notes reviewed Plan of care discussed with BODY CLEANER Discussed with patient (Alta Castro MD) Problem Qualifiers (1) Hypertension: Qualified Code: I10 - Essential hypertension (2) Hyperlipidemia: Qualified Code: E78.5 - Hyperlipidemia, unspecified hyperlipidemia type (3) Fracture of metatarsal: Qualified Code: S92.321G - Closed displaced fracture of second metatarsal bone of right foot with delayed healing, subsequent encounter (4) CAD (coronary artery disease): Qualified Code: I25.10 - Coronary artery disease involving [place] coronary artery of [place] heart without angina pectoris (5) Hypothyroid: Qualified Code: E03.9 - Hypothyroidism, unspecified type (6) Peripheral neuropathy: Qualified Code: G60.9 - Idiopathic peripheral neuropathy Yaneli Solano Apr 16, 2016 11:46 Alta Castro MD Apr 16, 2016 15:17
[2016-04-16 12:00] VITALS: BP 130/71; PULSE 68; RESP 20; TEMP 96.6; O2SAT 95
[2016-04-16] MEDS: HEPARIN SODIUM - SQ 10,000 UNITS/ML VIAL SQ SCH ×2 (12:07→23:15)
--- NOTE | 2016-04-16 12:57 | PD.POD ---
Subjective Podiatric Problems Idiopathic peripheral neuropathy Osteomyelitis of the second toe and second metatarsal and possible third metatarsal right foot. Status post excision of osteomyelitic bone Ulceration subsecond metatarsal head right foot Pain scale used: 0-10 numeric scale Pain score: 0 Remarks Patient is a 76-year-old female who I have followed in the wound Center for osteomyelitis of the hallux. She is status post resection and amputation of the right hallux with good healing. She started having swelling of the second and third metatarsal phalangeal joint. Radiographs were obtained which showed a fractured second and third metatarsal head. She developed an ulcer under the second metatarsal head. Patient called the office and I had her admitted for [facility] shows osteomyelitis of the second metatarsal phalangeal joint. There is periosteal reaction at the third metatarsal. Patient underwent surgical excision of the bone on Friday. She is without complaints at this time. Past Med/Surg/Social History Past Medical History HEENT: REPORTS HX OF: Cataracts, DENIES HX OF: Glaucoma, Recurrent ear infections, Recurrent sinusitis, Other HEENT history Endocrine: REPORTS HX OF: Hypothyroidism, DENIES HX OF: Diabetes mellitus, Graves disease, Hyperthyroidism, Other endocrine history Respiratory: DENIES HX OF: Allergies/hay fever, Asthma, COPD, CPAP use, Sleep apnea, Other respiratory history Cardiovascular: REPORTS HX OF: Cardiac arrhythmias, Deep venous thrombosis, Heart valve disease, Hypertension, DENIES HX OF: Abdominal aortic aneurysm, Angina, Atrial fibrillation, Coronary artery disease, Heart failure, Hyperlipidemia, Myocardial infarction, Peripheral vascular dz, Other CV history Gastrointestinal: REPORTS HX OF: GERD, DENIES HX OF: Colitis, Irritable bowel syndrome, Liver disease, Pancreatitis, Peptic ulcer disease, Other GI history Genitourinary: DENIES HX OF: Chlamydia, Gonorrhea, Hemodialysis, Herpes genitalis, Human papillomavirus, Kidney disease, Kidney failure, Kidney stones, Past UTI, Peritoneal dialysis, Urinary incontinence, Other history Gynecologic: DENIES HX OF: Abnormal pap smear, Chronic pelvic pain, Endometriosis, PID, Polycystic ovarian synd, Recurrent vaginal infxn, Other drying machine back tender history Musculoskeletal: REPORTS HX OF: Osteoarthritis, DENIES HX OF: Fibromyalgia, Fractures, Gout, Osteoporosis, Rheumatoid arthritis, Other musculoskeletal hx Cancer/Hematology: REPORTS HX OF: Thyroid cancer, DENIES HX OF: Anemia, Bladder Cancer, Blood cancer, Brain cancer, Breast cancer, Colorectal cancer, Endocrine cancer, Eye cancer, GI cancer, cancer, Kidney cancer, Leukemia, Liver cancer, Lung cancer, Lymphoma, Musculoskeletal cancer, Neurologic cancer, Oral cancer, Skin cancer, Stomach cancer, Other cancer/hematology Cancer - female: DENIES HX OF: Cervical cancer, Ovarian cancer, Uterine cancer Infectious disease: DENIES HX OF: AIDS, Chickenpox, Hepatitis, HIV, Measles, MRSA, Mumps, Polio, Positive PPD, Rheumatic fever, Rubella, Syphilis, Tuberculosis, Vanc-resistant enterococc, Other inf disease history Integumentary: REPORTS HX OF: Psoriasis, DENIES HX OF: Acne, Eczema, Other integumentary hx Neurologic: REPORTS HX OF: Peripheral neuropathy, Restless leg syndrome, Stroke , DENIES HX OF: ADHD, Autism, Dementia, Developmental delay, Headaches, Multiple sclerosis, Parkinson disease, Seizures, Transient ischemic attack, Other neurologic history Psychiatric: REPORTS HX OF: Depression, DENIES HX OF: Anorexia nervosa, Anxiety, Bipolar disorder, Bulimia, Schizophrenia, Other psychiatric history Genetic/metabolic: DENIES HX OF: Cystic fibrosis, Down syndrome, Other genetic history, Other metabolic history Events: DENIES HX OF: Anaphylaxis, Gunshot wound, Motor vehicle accident, Other events Disabilities: DENIES HX OF: Hearing deficit, Vision deficit, Hemiparesis, Paraplegia, Quadriplegia, Other disabilities Past Surgical History HEENT: REPORTS HX OF: Cataract extraction, Dental surgery, Other throat surgery , DENIES HX OF: Laryngectomy, Tonsillectomy, Other head surgery, Other eye surgery, Other ear surgery, Other nasal surgery Endocrine: REPORTS HX OF: Thyroid surgery, DENIES HX OF: Parathyroidectomy, Other endocrine surgery Respiratory: DENIES HX OF: Bronchoscopy, Lobectomy, Other chest surgery Cardiovascular: REPORTS HX OF: Angiogram, Pacemaker, DENIES HX OF: Angioplasty , CABG surgery, Carotid endarterectomy, Coronary stent, Heart transplant, Valve replacement, Other cardiac surgery Gastrointestinal: REPORTS HX OF: Appendectomy, DENIES HX OF: Cholecystectomy, Colectomy, subtotal, Colectomy, total, Gastric bypass, Hernia repair, Splenectomy, Other GI surgery Genitourinary: REPORTS HX OF: Bladder surgery, DENIES HX OF: Kidney stone extraction, Nephrectomy, Other surgery Gynecologic: REPORTS HX OF: Hysterectomy, Tubal ligation, DENIES HX OF: Cervical conization/LEEP, delivery, Oophorectomy, Other drying machine back tender surgery Musculoskeletal: REPORTS HX OF: Joint replacement (right knee), Other musculoskeletal srg (amputation of the right hallux) Integumentary: DENIES HX OF: Skin cancer removal, Other integumentary surg Neurologic: DENIES HX OF: Craniotomy, Spinal surgery, Other neurologic surgery Breast: REPORTS HX OF: Breast biopsy, Lumpectomy, DENIES HX OF: Mastectomy, bilateral, Mastectomy, left, Mastectomy, right, Other breast surgery Social History Smoking Status: Former Smoker Review of Systems Notes No changes in her 14 point review of systems exam since her last visit yesterday Musculoskeletal: COMPLAINS OF: Deformaties Objective Vital Signs Vital Signs Date Time Temp Pulse Resp B/P Pulse Ox O2 Delivery O2 Flow Rate FiO2 04/16/16 12:00 96.6 68 20 130/71 95 04/16/16 09:18 93 21 04/16/16 08:00 95.3 66 20 168/91 97 04/16/16 04:00 97.0 51 18 118/67 97 04/15/16 20:00 98.1 68 18 150/80 96 04/15/16 16:00 95.4 65 20 122/70 95 Coded Allergies: Aspirin (Verified Allergy, Severe, gi upset, 04/12/16) Codeine (Verified Allergy, Severe, n/v, 04/12/16) Lortab (Verified Allergy, Severe, n/v, 04/12/16) Pentazocine (Verified Allergy, Severe, 04/12/16) unknown reaction Doxycycline (Verified Allergy, Unknown, 04/12/16) Levaquin (Verified Allergy, Unknown, 04/12/16) *MDRO Multi-Drug Resistant Organism (Verified Adverse Reaction, Unknown, ) MRSA (toe wound) - 10/10/15 Uncoded Allergies: toviaz (Allergy, Severe, angina pain, 07/20/10) NONE (Allergy, Unknown, 11/16/02) TALWIN (Allergy, Unknown, 07/20/10) hallucinates Medications and IVs Current Medications Piperacillin Sod/ Tazobactam Sod 100 ml @ 200 mls/hr ONCE ONCE IV Last administered on 04/12/16t 11:11; Start 04/12/16 at 11:00; Stop 04/12/16 at 11:29; Status DC Vancomycin HCl 1000 mg/Sodium Chloride 250 ml @ 125 mls/hr ONCE ONCE IV Last administered on 04/12/16 12:03; Start 04/12/16 at 11:00; Stop 04/12/16 at 12:59; Status DC Sodium Chloride (/ NS 1000 ml Inj) 1,000 ml @ 75 mls/hr [id number] IV Last administered on 04/16/16 09:55; Start 04/12/16 at 11:01 IV Flush (NS Flush) 2 ml UNSCH PRN FLUSH FLUSH AFTER USING IV ACCESS; Start 04/12/16 at 11:15; Stop 04/14/16 at 11:34; Status DC IV Flush (NS Flush) 2 ml BID FLUSH Last administered on 04/14/16 08:05; Start 04/12/16 at 21:00; Stop 04/14/16 at 11:35; Status DC Acetaminophen (Tylenol) 650 mg Q4H PRN PO TEMP > 100.4 Last administered on 04/13 14:04; Start 04/12/16 at 11:15 Ondansetron HCl (Zofran Inj) 4 mg Q6H PRN IVP NAUSEA OR VOMITING; Start at 11:15 Heparin Sodium (Porcine) (Heparin Inj) 5,000 units Q12H SQ Last administered on 04/16/16 12:07; Start 04/12/16 at 12:00 Naloxone HCl (Narcan Inj) 0.4 mg UNSCH PRN IV SEE LABEL COMMENTS; Start at 11:15; Stop 04/14/16 at 11:36; Status DC Alprazolam (Xanax) 0.25 mg DAILY PRN PO ANXIETY Last administered on 04/16/16 00:40; Start 04/12/16 at 11:15 Carbamazepine (TEGretol) 200 mg BID PO Last administered on 04/16/16 09:56; Start 04/12/16 at 21:00 Celecoxib (CeleBREX) 200 mg DAILY PRN PO PAIN; Start 04/12/16 at 11:15 Duloxetine HCl (Cymbalta Dr) 60 mg HS PO Last administered on 04/15/16 22:04; Start 04/12/16 at 21:00 Estradiol (Estradiol) 0.5 mg DAILY PO Last administered on 04/16/16 09:56; Start 04/13/16 at 09:00 Fluticasone Propionate (Flonase Daryl Spr) 1 spray BID EACH NARE Last administered on 04/16/16 09:55; Start 04/12/16 at 21:00 Isosorbide Mononitrate (Imdur) 30 mg DAILY PO Last administered on 04/16/16 09: 56; Start 04/13/16 at 09:00 Levothyroxine Sodium (Synthroid) 150 mcg DAILY@0600 PO Last administered on 04/16 05:33; Start 04/13/16 at 06:00 Lidocaine HCl (Lidoderm 5% Patch.12 Hr) 1 patch DAILY PRN T-DERMAL PAIN; Start 04/12/16 at 11:15 Metoprolol Succinate (Toprol Xl) 25 mg DAILY PO Last administered on 04/16/16 09:56; Start 04/13/16 at 09:00 Multivitamins/ Minerals Therapeutic (Theragran M Tab) 1 tab DAILY PO Last administered on 04/16/16 09:56; Start 04/13/16 at 09:00 Pantoprazole Sodium (Protonix) 40 mg DAILY PO Last administered on 04/16/16 09: 56; Start 04/13/16 at 09:00 Loratadine (Claritin) 10 mg DAILY PO Last administered on 04/16/16 09:56; Start 04/13/16 at 09:00 Amlodipine Besylate (Norvasc) 2.5 mg HS PO Last administered on 04/15/16 22:08 ; Start 04/12/16 at 21:00 Non-Formulary Medication 25 mg DAILY PO ; Start 04/13/16 at 09:00; Status UNV Pravastatin Sodium (Pravachol) 80 mg DAILY PO Last administered on 04/16/16 09: 56; Start 04/13/16 at 09:00 Tramadol HCl (Ultram) 50 mg DAILY PO Last administered on 04/14/16 08:06; Start 04/13/16 at 09:00 Zolpidem Tartrate (Ambien) 5 mg HS PRN PO INSOMNIA; Start 04/12/16 at 12:00 Patient Own Medication PT OWN MED: MYRBET... DAILY PO ; Start 04/13/16 at 09:00; Status Hold Piperacillin Sod/ Tazobactam Sod 50 ml @ 100 mls/hr Q6H IV Last administered on 04/16/16 12:07; Start 04/12/16 at 23:00 Pharmacy Profile Note (Vancomycin Consult Pharmacy) 0 ml @ 0 mls/hr UNSCH OTHER ; Start 04/12/16 at 17:00 Dextrose (D50w (Vial) Inj) 25 ml UNSCH PRN IV PUSH HYPOGLYCEMIA-SEE COMMENTS; Start 04/12/16 at 17:00 Glucagon (Glucagon Inj) 1 mg UNSCH PRN OTHER HYPOGLYCEMIA-SEE COMMENTS; Start 04/12/16 at 17:00 Insulin Aspart 1 1 ACHS SLIDING SCALE SQ ; Start 04/12/16 at 21:00; Stop at 15:48; Status DC Vancomycin HCl 1000 mg/Sodium Chloride 250 ml @ 250 mls/hr ONCE ONCE IV Last administered on 04/12/16 01:00; Start 04/12/16 at 23:00; Stop 04/12/16 at 23:59; Status DC Vancomycin HCl/ Sodium Chloride (Vancomycin Inj/ NS 500 ml Inj) 515 ml @ 257.5 mls/ hr Q24H IV Last administered on 04/15/16 14:32; Start 04/13/16 at 14:00; Stop 04/15/16 at 15:25; Status DC Miscellaneous Information SPECIFIC LAB TO BE RAJ... ONCE ONCE XX Last administered on 04/15/16 13:50; Start 04/15/16 at 13:45; Stop 04/15/16 at 13:46; Status DC Potassium Chloride 40 meq 40 meq ONCE ONCE PO Last administered on 04/13/16 12 :55; Start 04/13/16 at 12:45; Stop 04/13/16 at 12:46; Status DC Lactated Ringer's 1,000 ml @ 30 mls/hr Q24H IV ; Start 04/13/16 at 15:00 Sodium Chloride (NS 500 ml Inj) 500 ml @ 30 mls/hr [id number] IV Last administered on 04/14/16 07:40; Start 04/13/16 at 15:00; Stop 04/14/16 at 14:59; Status DC Insulin Human Regular (NovoLIN R INJ) See Protocol Table ... UNSCH X1 PRN SQ SEE PROTOCOL; Start 04/13/16 at 15:00; Stop 04/14/16 at 14:59; Status DC Metoprolol Tartrate (Lopressor) 25 mg UNSCH X1 PRN PO SEE LABEL COMMENTS; Start 04/13/16 at 15:00; Stop 04/14/16 at 14:59; Status DC Midazolam HCl (Versed Inj) 2 mg STK-MED ONCE .ROUTE ; Start 04/14/16 at 10:32; Stop 04/14/16 at 10:33; Status DC Fentanyl Citrate (fentaNYL INJ) 250 mcg STK-MED ONCE .ROUTE ; Start 04/14/16 at 10:32; Stop 04/14/16 at 10:33; Status DC Bupivacaine HCl (Marcaine Pf 0.5% Inj) 30 ml STK-MED ONCE INFIL Last administered on 04/14/16 11:21; Start 04/14/16 at 11:21; Stop 04/14/16 at 11:22; Status DC IV Flush (NS Flush) 2 ml UNSCH PRN IVF FLUSH AFTER USING IV ACCESS; Start at 11:30 IV Flush (NS Flush) 2 ml BID IVF Last administered on 04/15/16 09:31; Start 04/14/16 at 21:00 Ibuprofen (Motrin) 400 mg Q6H PRN PO PAIN SCALE 1 TO 2; Start 04/14/16 at 11:30 Morphine Sulfate (Morphine Inj) 4 mg Q3H PRN IV Pain 6-10;if unable to take PO ; Start 04/14/16 at 11:30 Acetaminophen (Ofirmev Inj) 1,000 mg Q6H IV Last administered on 04/15/16 04:54 ; Start 04/14/16 at 12:00; Stop 04/15/16 at 06:01; Status DC Tramadol HCl (Ultram) 50 mg Q4H PRN PO PAIN SCALE 3 TO 5; Start 04/14/16 at 11: 30 Naloxone HCl (Narcan Inj) 0.4 mg UNSCH PRN IV SEE LABEL COMMENTS; Start at 11:30 Miscellaneous Information ALL NURSING DEPARTME... UNSCH PRN XX SEE LABEL COMMENTS; Start 04/14/16 at 11:29; Stop 04/15/16 at 11:28; Status DC Clonidine (Catapres) 0.1 mg Q6H PRN PO SBP>160, DBP>90 Last administered on 04/14 17:55; Start 04/14/16 at 12:15 Potassium Chloride (KCl) 20 meq DAILY PO Last administered on 04/16/16 09:55; Start 04/14/16 at 12:15 Propofol (Diprivan 200 Mg/20 ml Inj) 200 mg STK-MED ONCE IV ; Start 04/14/16 at 13:01; Stop 04/15/16 at 13:02; Status DC Ephedrine Sulfate (ePHEDrine/NS 25 MG/5 ML SYR) 25 mg STK-MED ONCE IV ; Start at 13:01; Stop 04/15/16 at 13:02; Status DC Phenylephrine HCl (Neosynephrine/ NS 1000 Mcg/10ml Syr) 1,000 mcg STK-MED ONCE IV ; Start 04/14/16 at 13:01; Stop 04/15/16 at 13:02; Status DC Ondansetron HCl 4 mg 4 mg STK-MED ONCE IV PUSH ; Start 04/14/16 at 13:01; Stop at 13:02; Status DC Vancomycin HCl/ Sodium Chloride (Vancomycin Inj/ NS 250 ml Inj) 250 ml @ 250 mls/hr Q12H IV Last administered on 04/16/16 02:04; Start 04/16/16 at 02:00 Miscellaneous Information SPECIFIC LAB TO BE ... ONCE ONCE XX ; Start at 13:45; Stop 04/17/16 at 13:46 Other Results Laboratory Tests Test 04/15/16 07:28 Sodium Level 140 MEQ/L Potassium Level 3.7 MEQ/L Chloride Level 106 MEQ/L Carbon Dioxide Level 24.7 MEQ/L Anion Gap 9 MEQ/L Blood Urea Nitrogen 10 MG/DL Creatinine 0.72 MG/DL Estimat Glomerular Filtration 79 ML/MIN Rate Random Glucose 101 MG/DL Calcium Level 8.3 MG/DL Exam-Podiatry Constitutional General appearance: comfortable Nutritional status: normal Orientation: alert and oriented x3 Dermatological Exam Other: Scars, Surgery,Injury Dressing to right foot was changed today under aseptic conditions. Incision edges are well coapted and intact. No signs of infection or cellulitis. No purulence. Minimal edema present. Vascular/Lymphatic Exam R Dorsails Pedis: Palpable L Dorsails Pedis: Palpable R Posterior Tibial: Palpable L Posterior Tibial: Palpable Neurologic Exam Present on right: Tingling, Paraesthesia Present on left: Tingling, Paraesthesia Musculoskeletal Exam Details Amputated first and second toes of the right foot Muscle Strength Dorsiflexion (Right): Normal Plantarflexion (Right): Normal Inversion (Right): Normal Eversion (Right): Normal Digital (Right): Normal Dorsiflexion (Left): Normal Plantarflexion (Left): Normal Inversion (Left): Normal Eversion (Left): Normal Digital (Left): Normal Foot Range of Motion Dorsiflexion (Right): Normal Plantarflexion (Right): Normal Inversion (Right): Normal Eversion (Right): Normal Digital (Right): Normal Dorsiflexion (Left): Normal Plantarflexion (Left): Normal Inversion (Left): Normal Eversion (Left): Normal Digital (Left): Normal Assessment & Plan Diagnosis: (1) Pressure ulcer, stage II, skin breakdown Status: Acute (2) Pain in toe of right foot Status: Acute (3) Subluxation of metatarsophalangeal joint of toe Status: Acute (4) Peripheral neuropathy Status: Chronic (5) Osteomyelitis of toe of right foot Status: Acute (6) Osteomyelitis of foot, right, acute Status: Acute A/P PLAN: Dressings of the right foot were changed under aseptic conditions. Patient to wear postop shoe at all times. Okay to discharge to [facility] tomorrow. Follow-up in my office in 2 weeks. Problem Qualifiers (1) Subluxation of metatarsophalangeal joint of toe: Qualified Code: S93.149D - Subluxation of metatarsophalangeal joint of toe, subsequent encounter (2) Peripheral neuropathy: Qualified Code: G60.9 - Idiopathic peripheral neuropathy Francis Mckeon DPM Apr 16, 2016 12:57
[2016-04-16] MEDS: LACTATED RINGER'S 1000 ML IV SCH (15:00)
--- NOTE | 2016-04-16 15:53 | HHI.DCPOC ---
Discharge Care Plan Diagnosis: (1) Osteomyelitis of foot, right, acute Your Health Problems Are: Skin Breakdown Inflammation Swelling Goals to Promote Your Health * To prevent worsening of your condition and complications * To maintain your health at the optimal level Directions to Meet Your Goals Take your medications as prescribed Follow your dietary instruction Follow activity as directed Keep your appointments as scheduled Take your immunizations and boosters as scheduled If your symptoms worsen call your PCP, if no PCP go to Urgent Care Center or Emergency Room Smoking is Dangerous to Your Health. Avoid second hand smoke Call the 24-hour hour crisis hotline for domestic abuse at Yaneli Solano Apr 16, 2016 15:53
[2016-04-16 16:00] VITALS: BP 140/79; PULSE 69; RESP 20; TEMP 97.5; O2SAT 95
[2016-04-16 19:30] VITALS: BP 168/90; PULSE 77; RESP 18; TEMP 98.5; O2SAT 94
[2016-04-16] MEDS: amLODIPine BESYLATE 5 MG TAB PO SCH (21:31)
[2016-04-16] MEDS: DULoxetine HCl DR 60 MG CAP PO SCH (21:31)
[2016-04-17] VITALS: BP 151/72; PULSE 62; RESP 18; TEMP 97.4; O2SAT 98
[2016-04-17] MEDS: VANCOMYCIN 1,000 MG/NS 250 ML IV SCH ×4 (01:48→13:40)
[2016-04-17] MEDS: ALPRAZolam 0.25 MG TAB PO PRN (01:55)
[2016-04-17 04:00] VITALS: BP 104/51; PULSE 61; RESP 18; TEMP 97.5; O2SAT 95
[2016-04-17] MEDS: PIPERACIL-TAZO 3.375 GM PREMIX 50 ML IV SCH ×2 (05:22→12:53)
[2016-04-17] MEDS: LEVOTHYROXINE SODIUM 150 MCG TAB PO SCH (05:22)
[2016-04-17 08:05] VITALS: BP 178/87; PULSE 66; RESP 20; TEMP 97.1; O2SAT 95
[2016-04-17] MEDS: SODIUM CHLORIDE 0.9% FLUSH 5 ML FLUSH IVF SCH (08:37)
[2016-04-17] MEDS: traMADol HCL 50 MG TAB PO SCH (08:37)
[2016-04-17] MEDS: POTASSIUM CHLORIDE 20 MEQ CONTROLLED RELEASE TAB PO SCH (08:41)
[2016-04-17] MEDS: MULTIVITAMINS/MINERALS THERAPEUTIC TAB PO SCH (08:41)
[2016-04-17] MEDS: METOPROLOL SUCCINATE 25 MG EXTENDED RELEASE TAB PO SCH (08:41)
[2016-04-17] MEDS: ESTRADIOL 1 MG TAB PO SCH (08:42)
[2016-04-17] MEDS: carBAMazepine 200 MG TAB PO SCH (08:42)
[2016-04-17] MEDS: LORATADINE 10 MG TAB PO SCH (08:42)
[2016-04-17] MEDS: PANTOPRAZOLE SOD 40 MG DELAYED RELEASE TAB PO SCH (08:42)
[2016-04-17] MEDS: ISOSORBIDE MONONITRATE 30 MG TAB PO SCH (08:42)
[2016-04-17] MEDS: PRAVASTATIN SOD 80 MG TAB PO SCH (08:42)
[2016-04-17] MEDS: FLUTICASONE PROPIONATE 50 MCG/ACT 16 GM NASAL SPRAY EACH NARE SCH (08:43)
[2016-04-17] MEDS: SODIUM CHLOR 0.45% 1000 ML INJ 1,000 ML IV SCH (11:01)
--- NOTE | 2016-04-17 11:42 | HHI.PR ---
Subjective Subjective Remarks No chest pain Shortness of breath Appetite good. improving No headache Right foot elevated, S/P surgery,04/13 Review of Systems Constitutional Constitutional: Weakness (generalized. 10 point ROS done positives noted in record, other systems negative or unremarkable) Musculoskeletal MS: Weakness, Discomfort/Pain Integumentary Skin: Wounds Skin Remarks Right great toe, amputation in December 2015.. Mild erythema right lower leg Psychiatric Psychiatric: Normal Mood Vitals/Results Intake & Output 04/16/16 04/16/16 04/17/16 15:00 23:00 07:00 Intake Total 360 ml 750 ml 750 ml Balance 360 ml 750 ml 750 ml Intake Oral 360 ml IV Total 750 ml 750 ml # Voids 5 7 # Bowel Movements 1 1 Vital Signs Vital Signs Date Time Temp Pulse Resp B/P Pulse Ox O2 Delivery O2 Flow Rate FiO2 04/17/16 08:05 97.1 66 20 178/87 95 04/17/16 04:00 97.5 61 18 104/51 95 04/17/16 00:00 97.4 62 18 151/72 98 04/16/16 19:30 98.5 77 18 168/90 94 04/16/16 16:00 97.5 69 20 140/79 95 04/16/16 12:00 96.6 68 20 130/71 95 CBC/BMP: 04/13/16 0647 04/17/16 0900 Lab Results Laboratory Tests Test 04/17/16 09:00 Creatinine 0.86 MG/DL Estimat Glomerular Filtration 65 ML/MIN Rate Imaging Remarks Last Impressions Foot X-Ray 04/14/16 0000 Signed Impressions: Service Date/Time: Thursday, April 14, 2016 11:37 - CONCLUSION: Post surgical changes. Francis Ortiz MD Chest X-Ray 04/13/16 0000 Signed Impressions: Service Date/Time: Wednesday, April 13, 2016 13:13 - CONCLUSION: No acute disease. Francis Ortiz MD Tumor Localization 04/12/16 0000 Signed Impressions: Service Date/Time: Tuesday, April 12, 2016 12:59 - CONCLUSION: 1. Suspected osteomyelitis along the head of the second metatarsal, 2nd metatarsal phalangeal joint and base of the proximal phalanx of the second digit. Francis Ortiz MD Current Medications Active Medications Miscellaneous Information SPECIFIC LAB TO BE . ONCE ONCE XX; Start at 13:45; Stop 04/17/16 at 13:46 Physical Exam General General Appearance: Well Developed, Well Nourished, No Acute Distress, Comfortable Appearance Remarks Mild anxiety over current condition Eyes Eye Exam: Pupils Equal, Pupils Reactive, Extraocular Movement Intact Ears & Nose Ears & Nose Exam: Nasal Mucosa [place] Throat Throat Exam: Oral Mucosa [place] & Moist Neck Neck Exam: Neck Supple Pulmonary Resp Exam: Clear Bilaterally, Breath Sounds Equal, No Distress Cardiology CV Exam: Regular Gastrointestinal/Abdomen GI Exam: Soft, Non-Tender, Bowel Sounds Present, Non-Distended Musculoskeletal MS Exam: Normal Tone, Unable to Ambulate, Infections MS Remarks Ousted for osteomyelitis second toe, third toe. Recent great toe removed right foot Dressing clean dry and intact Integumentary Skin Exam: Warm, Dry, Ulcer(s) Extremeties Extremities Exam: No Edema Neurologic Neuro Exam: Alert, Awake, Oriented, Speech Clear, Moving All Extremities, No Focal Deficits Psychiatric Psych Exam: Appropriate Responses VTE Prophylaxis VTE Prophylaxis Meds: Heparin Assessment/Plan Problem List: (1) Osteomyelitis of foot, right, acute (2) Postoperative state (3) Diet-controlled diabetes mellitus (4) Hypertension (5) Hyperlipidemia (6) Fracture of metatarsal (7) CAD (coronary artery disease) (8) Hypothyroid (9) Pressure ulcer of right foot, stage 3 (10) Peripheral neuropathy (11) Facial cellulitis Assessment/Plan 76-year-old female with previous osteomyelitis of right hallux, status post amputation. Returns to emergency room with increased swelling and erythema right foot, has open wound to the plantar aspect of the right foot. Admitted for recurrent foot ulcer, possible osteomyelitis. S/P 1: Amputation of second toe and second metatarsal right foot for osteomyelitis/ 2: Excision of third metatarsal head for osteomyelitis 04/14/2016 -Dr. Mckeon following pt, input appreciated. -Post op care No antibiotics IVF d/cd. Diet -controlled diabetes -Accu-Cheks before meals and at bedtime with low-dose insulin therapy Hypertension, stable -continue home medications CAD stable Continue home medications Heparin for DVT prophylaxis PT for eval and tx wound care per podiatry Discharge to SNF today. Stable for discharge, [facility]. D/W RN D/W Dr. Castro D/W pt. This patient was seen by myself and Dr. Castro. This note is written on his behalf. Problem Qualifiers (1) Hypertension: Qualified Code: I10 - Essential hypertension (2) Hyperlipidemia: Qualified Code: E78.5 - Hyperlipidemia, unspecified hyperlipidemia type (3) Fracture of metatarsal: Qualified Code: S92.321G - Closed displaced fracture of second metatarsal bone of right foot with delayed healing, subsequent encounter (4) CAD (coronary artery disease): Qualified Code: I25.10 - Coronary artery disease involving [place] coronary artery of [place] heart without angina pectoris (5) Hypothyroid: Qualified Code: E03.9 - Hypothyroidism, unspecified type (6) Peripheral neuropathy: Qualified Code: G60.9 - Idiopathic peripheral neuropathy Avril Madrigal Apr 17, 2016 11:42
[2016-04-17 12:04] VITALS: BP 140/80; PULSE 65; RESP 20; TEMP 96.3; O2SAT 94
--- NOTE | 2016-04-17 12:49 | HHI.DS ---
Discharge Summary Admission Date Apr 12, 2016 at 11:02 Discharge Date: Apr 17, 2016 Admitting Diagnosis pressure foot ulcer right foot, osteomyelitis, neuropathy (1) Osteomyelitis of foot, right, acute Diagnosis: Principal (2) Hypertension Diagnosis: Principal (3) Hyperlipidemia Diagnosis: Secondary (4) Hypothyroid Diagnosis: Secondary (5) Diet-controlled diabetes mellitus Diagnosis: Secondary (6) Peripheral neuropathy Diagnosis: Secondary (7) CAD (coronary artery disease) Diagnosis: Secondary Procedures surgery Brief History Patient was a 76-year-old female with PMHx of idiopathic neuropathy receives immunoglobulin therapy from Dr. Cardona, diabetes, hypertension, hyperlipidemia, osteomyelitis of the hallux with amputation. She followed up regularly with Dr. Mckeon. Patient presented to the emergency room for evaluation of wound to the right foot. According to the patient, she had noted the wound has been draining, it is mildly painful, she did have decreased sensation. She's noted that the second and third toe are more swollen and she had erythema over the dorsal aspect of the right foot and up anterior leg, sometimes this was more when she is walking or legs are dangling. Symptoms have been ongoing for a couple of weeks. She denied any fever or chills. She contacted Dr[facility] Mckeon [facility]. He ordered x-rays that showed fractures of the second and third metatarsal heads. Patient was directed to the emergency room for admission to have bone scan. Dr. Mckeon had evaluated patient, if the bone was infected he planed to take her to the OR for excision. Patient had just come back from bone scan, resting comfortably. Pain was minimal. She was hemodynamically stable. X-ray of the foot was done showing suspicious for osteomyelitis. CRP was elevated. Patient was admitted for further evaluation and treatment. CBC/BMP: 04/13/16 0647 04/17/16 0900 Significant Findings Laboratory Tests Test 04/15/16 04/17/16 07:28 09:00 Estimat Glomerular Filtration 79 ML/MIN (>89) 65 ML/MIN (>89) Rate Calcium Level 8.3 MG/DL (8.5-10.1) Imaging Last Impressions Foot X-Ray 04/14/16 0000 Signed Impressions: Service Date/Time: Thursday, April 14, 2016 11:37 - CONCLUSION: Post surgical changes. Francis Ortiz MD Chest X-Ray 04/13/16 0000 Signed Impressions: Service Date/Time: Wednesday, April 13, 2016 13:13 - CONCLUSION: No acute disease. Francis Ortiz MD Tumor Localization 04/12/16 0000 Signed Impressions: Service Date/Time: Tuesday, April 12, 2016 12:59 - CONCLUSION: 1. Suspected osteomyelitis along the head of the second metatarsal, 2nd metatarsal phalangeal joint and base of the proximal phalanx of the second digit. Francis Ortiz MD PE at Discharge General Appearance: Well Developed, Well Nourished, No Acute Distress, Comfortable Eyes Eye Exam: Pupils Equal, Pupils Reactive, Extraocular Movement Intact Ears & Nose Ears & Nose Exam: Nasal Mucosa Dotsero Throat Throat Exam: Oral Mucosa Dotsero & Moist Neck Neck Exam: Neck Supple Pulmonary Resp Exam: Clear Bilaterally, Breath Sounds Equal, No Distress Cardiology CV Exam: RegularGastrointestinal/Abdomen GI Exam: Soft, Non-Tender, Bowel Sounds Present, Non-Distended Musculoskeletal MS Exam: Normal Tone, Unable to Ambulate, Infections MS Remarks Ousted for osteomyelitis second toe, third toe. Recent great toe removed right foot Dressing clean dry and intact Integumentary Skin Exam: Warm, Dry, Ulcer(s) Extremeties Extremities Exam: No Edema Neurologic Neuro Exam: Alert, Awake, Oriented, Speech Clear, Moving All Extremities, No Focal Deficits Psychiatric Psych Exam: Appropriate Responses VTE Prophylaxis VTE Prophylaxis Meds: Heparin Hospital Course This is the initial diagnosis and problem list use for the plan of care. (1) Osteomyelitis of foot, right, acute (2) Postoperative state (3) Diet-controlled diabetes mellitus (4) Hypertension (5) Hyperlipidemia (6) Fracture of metatarsal (7) CAD (coronary artery disease) (8) Hypothyroid (9) Pressure ulcer of right foot, stage 3 (10) Peripheral neuropathy Assessment/Plan Patient's laboratory data, medications, vital signs every 4, pain management, wound care, and other nursing regimens were given to patient. She was maintained on a diabetic diet, with no problems. Patient showed a potassium level of 3.3 on 04/13/16, one of her routine labs and was treated with potassium, hypokalemia was resolved Patient received a bone scan which was positive for osteo myelitis. Dr. Mckeon was consulted and perform surgical procedure listed below Surgical procedure that was performed included: S/P 1: Amputation of second toe and second metatarsal right foot for osteomyelitis/ 2: Excision of third metatarsal head for osteomyelitis 04/14/2016 -Dr. Mckeon consult did and following pt, input appreciated. -Post op care was continued throughout hospital stay No antibiotics needed for discharge since surgical procedure was performed and infected bone was removed,. Patient was on IV fluids and antibiotics vancomycin and piperacillin during her hospital stay IVF d/cd. Before discharge Diet -controlled diabetes -Accu-Cheks before meals and at bedtime with low-dose insulin therapy Hypertension, stable -continue home medications, meds were reconciled CAD stable Continue home medications meds were reconciled Heparin for DVT prophylaxis during hospital stay PT for eval and tx, strengthening, mobility wound care per podiatry. Right leg is elevated on pillows. She will remain on bed rest for now. Discharge to SNF today. Stable for discharge, [facility]. Pt Condition on Discharge: Good Discharge Disposition: Discharge to SNF Discharge Instructions DIET: Follow Instructions for: Heart Healthy Diet Activities you can perform: See Additionl Instruction Other Activity Instructions: as per podiatry Follow up Referrals: PCP Follow-up Podiatry with JONATHAN Continued Medications: Carbamazepine (Tegretol) 200 Mg Tab 200 MG PO BID #60 Ref 0 TAB Celecoxib (Celebrex) 200 Mg Cap 200 MG PO DAILY PRN ANXIETY Ref 0 CAP Desloratadine (Clarinex) 5 Mg Tab 5 MG PO DAILY Allergy Management Ref [address] (Cymbalta DR) 60 Mg Capdr 60 MG PO HS #30 Ref 0 CAP Estradiol (Estradiol) 0.5 Mg Tab 0.5 MG PO DAILY Estrogen Supplements #30 Ref 0 TAB Felodipine ER (Felodipine ER) 2.5 Mg Vamsi 2.5 MG PO HS Blood Pressure Management #30 Ref 0 TAB Fluticasone Nasal [place] (Fluticasone Nasal [place]) 50 Mcg/Act Naspr 50 MCG EACH NARE BID 50 mcg/spray Allergy Management #1 Ref 0 BOTTLE Isosorbide Mononitrate ER (Isosorbide Mononitrate ER) 30 Mg Vamsi 30 MG PO DAILY Prevent Chest Pain #30 Ref 0 TAB Levothyroxine (Levothyroxine) 150 Mcg Tab 150 MCG PO DAILY Thyroid #30 Ref 0 TAB Lidocaine Patch 12 HR (Lidocaine Patch 12 HR) 5 % Patch 1 PATCH TOPICAL DAILY Remove patch after 12 hours PRN PAIN #1 Ref 0 BOX Metoprolol Succinate ER 24 HR (Metoprolol Succinate ER 24 HR) 25 Mg Tab 25 MG PO DAILY #30 Ref 0 TAB Mirabegron (Myrbetriq) 25 Mg Tab 25 MG PO DAILY Urinary Symptom Managemen #30 Ref 0 TAB Multiple Vitamins W/ Minerals (Multivitamin Adults) 1 Tab 1 TAB PO DAILY Nutritional Supplement Ref 0 TAB Pantoprazole (Protonix) 40 Mg Tab 40 MG PO DAILY Ulcer Prevention #30 Ref 0 TAB Simvastatin (Zocor) 40 Mg Tab 40 MG PO DAILY Cholesterol Management #30 Ref 0 TAB Zaleplon (Sonata) 5 Mg Cap 5 MG PO HS PRN INSOMNIA Ref 0 CAP Discontinued Medications: Alprazolam (Xanax) 0.25 Mg Tab 0.25 MG PO DAILY PRN ANXIETY Ref 0 TAB Tramadol ER 24 HR (Tramadol ER 24 HR) 100 Mg Vamsi 50 MG PO DAILY Ref 0 TAB Additional Information Active Medications Miscellaneous Information SPECIFIC LAB TO BE ... ONCE ONCE XX; Start at 13:45; Stop 04/17/16 at 13:46 Avril Madrigal Apr 17, 2016 12:49
[2016-04-17] MEDS: HEPARIN SODIUM - SQ 10,000 UNITS/ML VIAL SQ SCH (12:52)
[2016-04-17] MEDS: LACTATED RINGER'S 1000 ML IV SCH (12:55)
[2016-04-17] MEDS ORDERED: PHARMACY ORDERED LAB XX ONE (13:45)
[2016-08-14] MEDS ORDERED: ESTR1TAB PO (11:20)
[2016-08-14] MEDS ORDERED: ISOS30TA15 PO (11:20)
== END 2016-04-17 15:29 | DRG 474 ==
LOC: NEPE 09:50 → NEDA 11:02 → NEDH 14:45 → N05A 18:25
PROVIDERS: ADMIT Specialist; ATTEND Specialist
PROC: 0Y6R0Z3 Detachment at Right 2nd Toe, Low, Open Approach (ICD-10-PCS; principal; 2016-04-15)
PROC: 0Y6M0ZB Detachment at Right Foot, Partial 2nd Ray, Open Approach (ICD-10-PCS; 2016-04-15)
PROC: 0Y6M0ZC Detachment at Right Foot, Partial 3rd Ray, Open Approach (ICD-10-PCS; 2016-04-15)
DX: M86.171 Other acute osteomyelitis, right ankle and foot (principal); L89.893 Pressure ulcer of other site, stage 3; E11.42 Type 2 diabetes mellitus with diabetic polyneuropathy; L03.211 Cellulitis of face; G61.81 Chronic inflammatory demyelinating polyneuritis; E03.9 Hypothyroidism, unspecified; I10 Essential (primary) hypertension; E78.5 Hyperlipidemia, unspecified; E87.6 Hypokalemia; G25.81 Restless legs syndrome; G60.9 Hereditary and idiopathic neuropathy, unspecified; I25.10 Atherosclerotic heart disease of native coronary artery without angina pectoris; K21.9 Gastro-esophageal reflux disease without esophagitis; S92.321A Displaced fracture of second metatarsal bone, right foot, initial encounter for closed fracture; Z85.850 Personal history of malignant neoplasm of thyroid; Z86.73 Personal history of transient ischemic attack (TIA), and cerebral infarction without residual deficits; Z87.891 Personal history of nicotine dependence; Z90.710 Acquired absence of both cervix and uterus; Z96.651 Presence of right artificial knee joint; F41.9 Anxiety disorder, unspecified
CPT/HCPCS: 71020; 73620; 73630; 78807; 78999; 80048; 80053; 80202; 82565; 82948; 83605; 85025; 85610; 85652; 86140; 86403; 87040; 87070; 87186; 87205; 88304; 88305; 88311; 93005; 99285; A9569; J0131; J1644; J2250; J2370; J2405; J2543; J3010; J3370; J7040; J7050; L3260